=== PATIENT | female | born 1960 | race Caucasian/White ===

== ENCOUNTER 2021-03-04 09:26 | Outpatient (REF) | payer OTHER, SELFPAY ==
[2021-03-04 10:23] LABS: MANUAL DIFF FLAG NO
[2021-03-04 10:32] LABS: Basophils Percent Auto 0.8 % (0-2); Eosinophils Absolute Auto 0.2 X10*3/uL (0.0-0.4); Eosinophils Percent Auto 4.5 % (0-4); Hematocrit 38.4 % (37-47); Hemoglobin 12.5 g/dl (12.0-16.0); Imm Gran Abs Auto 0.03 X10*3/uL (0.00-0.03); Imm Gran Pct Auto 0.6 % (0.0-0.4); Lymphocytes Absolute Auto 2.1 X10*3/uL (1.2-4.9); Lymphocytes Percent Auto 39.2 % (20-40); Mean Corpuscular HGB Conc 32.6 g/dl (31.0-35.0); Mean Corpuscular Hemoglobin 29.2 pg (27.0-33.0); Mean Corpuscular Volume 89.7 fL (80-98); Mean Platelet Volume 11.2 fL (9.4-12.3); Monocytes Absolute Auto 0.3 X10*3/uL (0.1-1.2); Monocytes Percent Auto 5.3 % (2-11); Neutrophils Absolute Auto 2.6 X10*3/uL (2.0-8.3); Neutrophils Percent Auto 49.6 % (45-73); Platelet Count 287 X10*3/uL (160-400); Red Blood Count 4.28 X10*6/uL (4.20-5.50); Red Cell Distribution Width 12.8 % (11.0-16.0); White Blood Count 5.3 X10*3/uL (4.8-10.8)
[2021-03-04 11:15] LABS: TSH reflex Free T4 3.61 uIU/mL (0.32-4.0)
[2021-03-04 11:17] LABS: Alanine Aminotransferase 21 U/L (0-31); Albumin Level 4.4 g/dL (3.5-5.0); Alkaline Phosphatase 44 U/L (39-117); Anion Gap 13 (12-20); Aspartate Amino Transferase 22 U/L (5-31); Bilirubin Total 0.4 mg/dL (0.0-1.0); Blood Urea Nitrogen 13 mg/dL (9-16); Calcium 9.5 mg/dL (8.4-10.2); Carbon Dioxide 25 mmol/L (22-29); Chloride 109 mmol/L (96-108); Cholesterol 200 mg/dL; Estimated Glomerular Filt Rate > 60; Glucose Fasting 97 mg/dL (60-99); HDL Cholesterol 73 mg/dL; LDL Cholesterol Calculated 116 mg/dl; Potassium 4.5 mmol/L (3.3-5.1); Sodium 142 mmol/L (135-145); Triglycerides 58 mg/dL
[2021-03-09 16:01] LABS: Vitamin D 25-OH, D2 <4 ng/mL; Vitamin D 25-OH, D3 37 ng/mL; Vitamin D 25-OH, Total 37 ng/mL (30-100)
== END 2021-03-04 09:27 | disposition home or self-care (01) ==
LOC: HO.LAB 09:26
PROVIDERS: PCP Internal Medicine; Visit Provider Internal Medicine
DX: E03.9 Hypothyroidism, unspecified (principal); E78.5 Hyperlipidemia, unspecified; E78.1 Pure hyperglyceridemia; M81.0 Age-related osteoporosis without current pathological fracture; E55.9 Vitamin D deficiency, unspecified
CPT/HCPCS: 36415; 80053; 80061; 82306; 84443; 85025

== ENCOUNTER 2021-09-18 09:09 | Outpatient (REF) | payer OTHER, SELFPAY ==
[2021-09-18 10:14] LABS: Alanine Aminotransferase 20 U/L (0-31); Albumin Level 4.5 g/dL (3.5-5.0); Alkaline Phosphatase 42 U/L (39-117); Anion Gap 10 (12-20); Aspartate Amino Transferase 19 U/L (5-31); Bilirubin Total 0.5 mg/dL (0.0-1.0); Blood Urea Nitrogen 15 mg/dL (9-16); Calcium 10.1 mg/dL (8.4-10.2); Carbon Dioxide 29 mmol/L (22-29); Chloride 108 mmol/L (96-108); Cholesterol 205 mg/dL; Estimated Glomerular Filt Rate > 60; Glucose Fasting 99 mg/dL (60-99); HDL Cholesterol 74 mg/dL; LDL Cholesterol Calculated 120 mg/dl; Potassium 4.7 mmol/L (3.3-5.1); Sodium 142 mmol/L (135-145); Total Protein 7.1 g/dL (6.5-8.0); Triglycerides 56 mg/dL
[2021-09-18 10:38] LABS: Thyroid Stimulating Hormone 3.99 uIU/mL (0.32-4.0)
== END 2021-09-18 09:10 | disposition home or self-care (01) ==
LOC: HO.LAB 09:09
PROVIDERS: PCP Internal Medicine; Visit Provider Internal Medicine
DX: E78.1 Pure hyperglyceridemia (principal); E03.9 Hypothyroidism, unspecified; E78.5 Hyperlipidemia, unspecified
CPT/HCPCS: 36415; 80053; 80061; 84443

== ENCOUNTER 2021-10-18 10:48 | Outpatient (REF) | payer OTHER, SELFPAY ==
--- NOTE | ~2021-10-18 | MM_ITS ---
EXAMINATION: BONE DENSITOMETRY CLINICAL INDICATION: Osteoporosis. COMPARISON: This is the patient's baseline examination. TECHNIQUE: Using a [employer] DXA System (software version: 13.1) manufactured by [employer], dual-energy x-ray absorptiometry was performed of the lumbar spine and left hip. The images are of good technical quality. Summary results are attached. FINDINGS: AP SPINE L1-L4: BMD 0.962 g/cm2, Z-score -0.1, T-score -1.8, osteopenia. LEFT FEMUR, NECK: BMD 0.704 g/cm2, Z-score -0.9, T-score -2.4, osteopenia. LEFT FEMUR, TOTAL: BMD 0.742 g/cm2, Z-score -0.8, T-score -2.1, osteopenia. IDENTIFIED RISK FACTORS: Menopause. HISTORY OF FRACTURE: None listed. MEDICATIONS: Calcium, bisphosphonate. MM/XR DEXA axial skeleton IMPRESSION: 1. DIAGNOSIS: Osteopenia based on the lowest T-score value of -2.4 in the femoral neck applying World Health Organization criteria. 2. 10-YEAR FRACTURE RISK PREDICTION, FRAX: Major osteoporotic fracture (clinical spine, forearm, hip or shoulder) 6.7%. Hip fracture 1.3%. 3. Treatment Recommendations: NOF guidelines recommend consideration for treatment in postmenopausal women and men age 50 and older presenting with the following: -A hip or vertebral (clinical or morphometric) fracture. -T-score less than or equal to -2.5 at the femoral neck or spine after appropriate evaluation to exclude secondary causes. -Low bone mass at the hip or spine and a 10-year fracture probability by FRAX of greater than or equal to 3% for hip fracture or greater than or equal to 20% for major osteoporotic fracture based on the [place] adapted WHO algorithm. 4. Other Recommendations: All treatment decisions require clinical judgment and consideration of individual patient factors, including patient preferences, comorbidities, previous drug use, risk factors not captured in the FRAX model (e.g. frailty, falls, vitamin D deficiency, increased bone turnover, interval significant decline in bone density) and possible under or overestimation of fracture risk by FRAX. Additional medical evaluation for secondary cause of low bone mineral density may be appropriate. FUTURE SCAN RECOMMENDATION: People with diagnosed cases of osteoporosis or at high risk for fracture should have regular bone mineral density tests. For patients eligible for Medicare, routine testing is allowed once every 2 years. The testing frequency can be increased to one year for patients who have rapidly progressing disease, those who are receiving or discontinuing medical therapy to restore bone mass, or have additional risk factors.
== END 2021-10-18 10:49 | disposition home or self-care (01) ==
LOC: HO.MAMMO 10:48
PROVIDERS: Visit Provider Internal Medicine
DX: Z13.820 Encounter for screening for osteoporosis (principal); M81.0 Age-related osteoporosis without current pathological fracture; M85.80 Other specified disorders of bone density and structure, unspecified site; Z78.0 Asymptomatic menopausal state; Z79.899 Other long term (current) drug therapy
CPT/HCPCS: 77080

== ENCOUNTER 2022-01-22 09:14 | Outpatient (REF) | payer OTHER, SELFPAY ==
[2022-01-22 10:49] LABS: Alanine Aminotransferase 77 U/L (0-31); Albumin Level 4.4 g/dL (3.5-5.0); Alkaline Phosphatase 64 U/L (39-117); Anion Gap 13 (12-20); Aspartate Amino Transferase 48 U/L (5-31); Bilirubin Total 0.5 mg/dL (0.0-1.0); Blood Urea Nitrogen 14 mg/dL (9-16); Calcium 10.3 mg/dL (8.4-10.2); Carbon Dioxide 26 mmol/L (22-29); Chloride 107 mmol/L (96-108); Cholesterol 212 mg/dL; Estimated Glomerular Filt Rate 58; Glucose Fasting 99 mg/dL (60-99); HDL Cholesterol 79 mg/dL; LDL Cholesterol Calculated 118 mg/dl; Potassium 4.3 mmol/L (3.3-5.1); Sodium 142 mmol/L (135-145); Total Protein 7.4 g/dL (6.5-8.0); Triglycerides 78 mg/dL
[2022-01-22 10:54] LABS: Thyroid Stimulating Hormone 4.92 uIU/mL (0.32-4.0)
[2022-01-26 13:56] LABS: Vitamin D 25-OH, D2 <4 ng/mL; Vitamin D 25-OH, D3 27 ng/mL; Vitamin D 25-OH, Total 27 ng/mL (30-100)
== END 2022-01-22 09:15 | disposition home or self-care (01) ==
LOC: HO.LAB 09:14
PROVIDERS: PCP Internal Medicine; Visit Provider Internal Medicine
DX: E78.5 Hyperlipidemia, unspecified (principal); E03.9 Hypothyroidism, unspecified; E55.9 Vitamin D deficiency, unspecified; K59.01 Slow transit constipation
CPT/HCPCS: 36415; 80053; 80061; 82306; 84443

== ENCOUNTER 2022-07-03 08:50 | Outpatient (REF) | payer OTHER, SELFPAY ==
[2022-07-03 10:39] LABS: Alanine Aminotransferase 13 U/L (0-31); Albumin Level 4.4 g/dL (3.5-5.0); Alkaline Phosphatase 52 U/L (39-117); Anion Gap 15 (12-20); Aspartate Amino Transferase 18 U/L (5-31); Bilirubin Direct 0.2 mg/dL (0.0-0.5); Bilirubin Total 0.4 mg/dL (0.0-1.0); Blood Urea Nitrogen 17 mg/dL (9-16); Calcium 9.8 mg/dL (8.4-10.2); Carbon Dioxide 25 mmol/L (22-29); Chloride 108 mmol/L (96-108); Estimated Glomerular Filt Rate > 60; Glucose Random 96 mg/dL (60-115); Potassium 4.1 mmol/L (3.3-5.1); Sodium 144 mmol/L (135-145)
[2022-07-04 15:16] LABS: PTHI 46 pg/mL (16-77)
[2022-07-05 21:16] LABS: Calcium, Random Urine 25.3 mg/dL
== END 2022-07-03 08:51 | disposition home or self-care (01) ==
LOC: HO.LAB 08:50
PROVIDERS: PCP Internal Medicine; Visit Provider Internal Medicine
DX: E03.9 Hypothyroidism, unspecified (principal); E83.52 Hypercalcemia; E78.1 Pure hyperglyceridemia
CPT/HCPCS: 36415; 80053; 82248; 82310; 83970; 84443

== ENCOUNTER 2022-11-14 08:01 | Outpatient (REF) | payer OTHER, SELFPAY ==
[2022-11-14 10:00] LABS: Alanine Aminotransferase 12 U/L (0-31); Albumin Level 4.2 g/dL (3.5-5.0); Alkaline Phosphatase 62 U/L (39-117); Anion Gap 15 (12-20); Aspartate Amino Transferase 18 U/L (5-31); Bilirubin Total 0.5 mg/dL (0.0-1.0); Blood Urea Nitrogen 17 mg/dL (9-16); Calcium 9.8 mg/dL (8.4-10.2); Carbon Dioxide 25 mmol/L (22-29); Chloride 109 mmol/L (96-108); Cholesterol 195 mg/dL; Estimated Glomerular Filt Rate > 60; Glucose Fasting 96 mg/dL (60-99); HDL Cholesterol 73 mg/dL; LDL Cholesterol Calculated 112 mg/dl; Potassium 4.6 mmol/L (3.3-5.1); Sodium 144 mmol/L (135-145); Thyroid Stimulating Hormone 1.71 uIU/mL (0.32-4.0); Total Protein 6.8 g/dL (6.5-8.0); Triglycerides 52 mg/dL
== END 2022-11-14 08:02 | disposition home or self-care (01) ==
LOC: HO.LAB 08:01
PROVIDERS: PCP Internal Medicine; Visit Provider Internal Medicine
DX: E03.9 Hypothyroidism, unspecified (principal); E78.2 Mixed hyperlipidemia
CPT/HCPCS: 36415; 80053; 80061; 84443

== ENCOUNTER 2023-01-14 13:18 | Outpatient (REF) | payer OTHER, SELFPAY ==
[2023-01-17 10:19] LABS: HPV mRNA E6/E7 rflx Not Detected (Not Detected)
== END 2023-01-14 13:19 | disposition home or self-care (01) ==
LOC: HO.LNP 13:18
PROVIDERS: PCP Internal Medicine; Visit Provider Advanced Practice Midwife
DX: Z01.419 Encounter for gynecological examination (general) (routine) without abnormal findings (principal); N89.8 Other specified noninflammatory disorders of vagina; N95.1 Menopausal and female climacteric states
CPT/HCPCS: 87624; 88142

== ENCOUNTER 2023-03-26 08:58 | Outpatient (REF) | payer OTHER, SELFPAY ==
[2023-03-26 10:02] LABS: Cholesterol 204 mg/dL; HDL Cholesterol 77 mg/dL; LDL Cholesterol Calculated 118 mg/dl; Triglycerides 49 mg/dL
[2023-03-26 10:21] LABS: Vitamin D 25-OH Total 39.4 ng/mL (>30)
== END 2023-03-26 08:59 | disposition home or self-care (01) ==
LOC: HO.LAB 08:58
PROVIDERS: PCP Internal Medicine; Visit Provider Internal Medicine
DX: E03.9 Hypothyroidism, unspecified (principal)
CPT/HCPCS: 36415; 80061; 82306; 84443

== ENCOUNTER 2023-04-01 11:07 | Outpatient (REF) | payer OTHER, SELFPAY ==
--- NOTE | ~2023-04-01 | XR_ITS ---
EXAMINATION: XR HIP, RIGHT CLINICAL INFORMATION: Pain in the right hip COMPARISON: None available. TECHNIQUE: Two views of the right hip. FINDINGS: Right hip joint space is normal. No arthrosis. No fracture or dislocation. Osteosclerosis and subchondral cystic change of the pubic symphysis, osteitis condensans. XR/XR hip RT min 2V IMPRESSION: 1. Normal right hip. 2. Osteitis pubis condensans.
--- NOTE | ~2023-04-01 | XR_ITS ---
EXAMINATION: XR LUMBOSACRAL SPINE CLINICAL INFORMATION: Low back pain. COMPARISON: None available. TECHNIQUE: Three views of the lumbosacral spine. FINDINGS: Lumbar vertebrae have normal height and alignment. No fracture bone destruction. Minor degenerative lipping at the anterior endplates of lumbar vertebrae. Lumbar disc heights are normal. Normal sacroiliac joints. Calcified gallstone right upper quadrant of abdomen partially visualized measuring 2.5 cm in diameter. XR/XR lumbar spine 2-3V IMPRESSION: 1. No acute abnormality. 2. Mild degenerative spondylosis of lumbar spine. 3. Cholelithiasis.
== END 2023-04-01 11:08 | disposition home or self-care (01) ==
LOC: HO.XRAY 11:07
PROVIDERS: PCP Internal Medicine; Visit Provider Internal Medicine
DX: M54.50 Low back pain, unspecified (principal); M25.551 Pain in right hip
CPT/HCPCS: 72100; 73502

== ENCOUNTER 2023-11-23 08:00 | Outpatient (REF) | payer OTHER, SELFPAY ==
[2023-11-23 09:36] LABS: Alanine Aminotransferase 20 U/L (0-31); Albumin Level 4.3 g/dL (3.5-5.0); Alkaline Phosphatase 58 U/L (39-117); Anion Gap 14 (12-20); Aspartate Amino Transferase 18 U/L (5-31); Bilirubin Total 0.4 mg/dL (0.0-1.0); Blood Urea Nitrogen 18 mg/dL (9-16); Calcium 9.8 mg/dL (8.4-10.2); Carbon Dioxide 30 mmol/L (22-29); Chloride 107 mmol/L (96-108); Cholesterol 204 mg/dL (<200); Estimated Glomerular Filt Rate 60; Glucose Fasting 97 mg/dL (60-99); HDL Cholesterol 76 mg/dL (>40); LDL Cholesterol Calculated 114 mg/dL (<100); Potassium 3.6 mmol/L (3.3-5.1); Sodium 147 mmol/L (135-145); Total Protein 7.4 g/dL (6.5-8.0); Triglycerides 72 mg/dL (<150)
== END 2023-11-23 08:01 | disposition home or self-care (01) ==
LOC: HO.LAB 08:00
PROVIDERS: PCP Internal Medicine; Visit Provider Internal Medicine
DX: E78.5 Hyperlipidemia, unspecified (principal); E78.2 Mixed hyperlipidemia; E55.9 Vitamin D deficiency, unspecified
CPT/HCPCS: 36415; 80053; 80061; 82306

== ENCOUNTER 2023-11-26 10:02 | Outpatient (AMB) | payer OTHER, SELFPAY ==
[2023-11-26 10:10] VITALS: BP 110/70; BMI 21.7
--- NOTE | 2023-11-26 10:10 | A.OFFPC_ITS ---
Vital Signs 11/26/23 10:10 Height 5 ft 1 in Weight 115 lb BMI 21.7 BP 110/70 Blood Pressure Location Lt brachial Position Sitting Intake Visit Reasons: Annual Exam Intake Note: Patient here for a physical exam Milk Bottler Required: No Accompanied by: Self / Same As Patient Allergies No Known Allergies Allergy (Verified 11/26/23 10:29) Medication List - Last Reconciled 11/26/23 by Norma West MD calcium carbonate-vitamin D3 1,000 mg-20 mcg (800 unit) 1 tab PO DAILY 90 days cetirizine (All Day Allergy (cetirizine)) 10 mg PO DAILY PRN 90 days docusate sodium 100 mg PO BID PRN 90 days duloxetine (Cymbalta) 30 mg PO BID 30 days fenofibrate nanocrystallized 48 mg PO DAILY 90 days levothyroxine 50 mcg PO DAILY 90 days trazodone mg PO Tobacco use date assessed: 11/26/23 Fall risk assessment: No Falls in past year Last assessed Fall Risk: 11/26/23 Dental Screening Dental Screen Date: 11/26/23 Did you have a dental visit in the last 12 months?: Yes Did you have a dental problem in the last 6 months where you did not have access to dental care?: No Was dental information given to patient?: Patient has dentist HPI HPI Comments History of Present Illness Details This is a 62-year-old female that comes for her physical exam. Last mammogram was 2022 and was normal. Last Pap smear was 2022. Last colonoscopy was 2016 at [facility] and he was normal as per patient. No chest pain or shortness of breath. Cholesterol elevated but does not require any statin. On fenofibrate for high triglycerides which has had it well control. Last bone density was 2020 and will be repeated. [facility] Medical History Osteopenia Mixed hyperlipidemia Hypercalcemia Skin lesion Fibromyalgia Hypothyroidism Constipation by delayed colonic transit Hypertriglyceridemia Insomnia Osteoporosis Surgical History Previous section History of appendectomy Family History Father Hypertension Mother No problems noted. Social History Household Members: Spouse and Family Housing: House Alcohol intake: current Alcohol intake frequency: holidays/special occasions only Alcohol type: beer and wine Patient Tobacco Use Status: Never used Tobacco e-Cigarette/Vaping Use: Never Used Second Hand Smoke Exposure: No service: No Current occupational status: retired Sexual orientation: Straight/Heterosexual Gender identity: Female Cognitive needs: No Hearing needs: No Vision needs: Yes Questionnaire PHQ-9 Over the last 2 weeks, how often have you been bothered by any of the following problems? 1. Little interest or pleasure in doing things: not at all 2. Feeling down, depressed, or hopeless: several days 3. Trouble falling or staying asleep, or sleeping too much: not at all 4. Feeling tired or having little energy: not at all 5. Poor appetite or overeating: not at all 6. Feeling bad about yourself - or that you are a failure or have let yourself or your family down: not at all 7. Trouble concentrating on things, such as reading the newspaper or watching television: not at all 8. Moving or speaking so slowly that other people could have noticed. Or the opposite - being so fidgety or restless that you have been moving around a lot more than usual: not at all 9. Thoughts that you would be better off or of hurting yourself in some way: not at all Total score: 1 Depression Screening Interpretation: Negative Depression Screening Done: Yes 53841 - PHQ-9 Billing: Yes Source: Developed by Drs. Scott Ashraf, Jaycee Camp, Ken Paige and colleagues, with an educational fe from [employer]. Thrive Questionnaire Date Thrive assessed: 11/26/23 I am a: Patient What is your living situation today?: I have a steady place to live Within the past 12 months, did the food you bought not last and you didn't have the money to get more?: Never true Within the past 12 months, did you worry whether your food would run out before you got money to buy more?: Never true Do you have trouble paying for medicines?: No Do you have trouble getting transportation to medical appointments?: No Do you have trouble paying your heating and electricity bill?: No Do you have trouble taking care of your child, family member or friend?: No Do you have trouble with day-to-day activities such as bathing, preparing meals, shopping, managing finances, etc.?: No Are you currently unemployed and looking for a job?: No Are you interested in more education?: No Please select the resources that you would like help with: None Currently or been in a relationship where the following occur: no concerns reported THRIVE Score: 0 AUDIT C Alcohol Use Questionnaire (AUDIT-C) 1. How often do you have a drink containing alcohol?: Monthly or less 2. How many drinks containing alcohol do you have on a typical day when you are drinking?: 1 or 2 3. How often do you have six or more drinks on one occasion?: Never Total Score: 1 Score Reviewed/Action Taken: No DARSHAN-7 AMB Questionnaire DARSHAN-7 Date DARSHAN - 7 assessed: 11/26/23 Feeling nervous, anxious, or on edge: 0 = Not at all Not being able to stop or control worryin = Not at all Worrying too much about different things: 0 = Not at all Trouble relaxin = Not at all Being so restless that it is hard to sit still: 0 = Not at all Becoming easily annoyed or irritable: 0 = Not at all Feeling afraid as if something awful might happen: 0 = Not at all Total DARSHAN-7 score (0-4 normal; 5-9 mild; 10-14 moderate; 15-21 severe): 0 Source: Developed by Drs. Scott Ashraf, Jaycee Camp, Ken Paige and colleagues, with an educational fe from [employer]. DARSHAN-7 Assessment Billing DARSHAN-7 Assessment Tool: DARSHAN-7 Assessment 56791 Review of Systems Const All systems reviewed & are unremarkable except as noted in HPI and below Eyes Reports no additional complaints, Denies change in vision and Denies other visual disturbances Card Denies chest pain at rest, Denies chest pain with activity, Denies edema, Denies irregular heart rhythm, Denies claudication, Denies dyspnea, Denies dyspnea on exertion, Denies orthopnea, Denies paroxysmal nocturnal dyspnea and Denies slow heart rate Resp Denies cough, Denies dyspnea and Denies dyspnea on exertion GI Denies abdominal pain, Denies change in bowel habits, Denies excessive flatus, Denies nausea and Denies vomiting Denies urinary incontinence, Denies urinary hesitancy and Denies urinary urgency Musc Denies abnormal gait, Denies atrophy, Denies deformity and Denies limited range of motion Skin/Breast Denies bleeding lesions, Denies changing lesions and Denies rash Neuro Denies abnormal gait, Denies behavioral changes, Denies confusion and Denies la ck of coordination Psych Denies behavioral changes and Denies confusion Physical exam (Primary Care) Vital Signs: Last Vital Signs BP 110/70 11/26/23 10:10 BMI result Body Mass Index 21.7 Tobacco/Smoking Status: Tobacco use Status Tobacco use date assessed 11/26/23 11/26/23 10:16 Patient Tobacco Use Status Never used Tobacco 11/26/23 10:10 e-Cigarette/Vaping Use Never Used 11/26/23 10:10 PHQ-9: PHQ-9 Score PHQ-9: Total score 1 11/26/23 10:36 Depression Screening Interpretation: Negative Thrive Assessment: Date of Thrive Assessment Date Thrive assessed 11/26/23 11/26/23 10:16 Currently or been in a relationship where the following occur: no concerns reported Const General: No confusion Orientation/consciousness: patient oriented x3 and No confusion HENMT Head: Yes normal to inspection, Yes normocephalic and Yes atraumatic Ears: external ears normal Eyes General: appearance normal, both eyes and all related structures Eyelids: Yes eyelids normal Conjunctivae: conjunctivae normal Neck Neck: Yes normal visual inspection and Yes supple Resp Effort & Inspection: normal respiratory effort Auscultation: clear to auscultation bilaterally Cardio Jugular venous distension: no JVD Rate: regular rate Rhythm: regular rhythm Heart sounds: S1 normal heart sound present and S2 normal heart sound present GI Inspection: Yes normal to inspection Palpation (GI): Soft to palpation and nontender Auscultation: normal bowel sounds Skin General skin exam: no rashes or lesions noted Neuro General: patient oriented x3, no focal motor deficits and No confusion Extrem General: Yes full ROM Psych Appearance: grossly normal Office Procedures Flu Questionnaire Does the patient have a severe egg allergy?: No Does the patient have severe life threatening allergies?: No Does the patient have a fever or illness today?: No Has the patient ever had Guillain-[place] Syndrome?: No Has the patient ever had any past reaction to a flu shot?: No Immunizations flu vacc [id number] 6mos up(PF) 60 mcg(15 mcgx4)/0.5 mL IM syringe Performing Provider: Norma West MD [facility] Administered by: SARA Farrell on 11/26/23 10:48 Dose Route Admin Location Dispensed Lot Number Expiration Date [employer] Screener 0.5 mL IM Left Deltoid 0.5 mL [id number] 05/01/24 51272-473-11 [employer] VIS Given Date VIS Provided VIS Publication Date 11/26/23 Single Vaccine 21 Eligibility Eligibility Date Funding Source Not [facility] Eligible 11/26/23 Private Assessment and Plan Assessment & Plan (1) Physical exam: Code(s): Z00.00 - Encounter for general adult medical examination without abnormal findings Plan: Repeat in a year. Orders: Orders XR DEXA axial skeleton Today N95.9 - Unspecified menopausal and perimenopausal disorder Thyroid Stimulating Hormone 6 Months E03.9 - Hypothyroidism, unspecified Influenza [id number] Immunization Today Z23 - Encounter for immunization Coding Level of Care Code Est Pt Prev Care 40-64y(44845) Diagnoses Physical exam Z00.00 Additional Codes DARSHAN-7 Assessment Billing - DARSHAN-7 Assessment Tool: DARSHAN-7 Assessment 64802 ([id number]) Time Spent (min) 31
== END 2023-11-26 10:47 | disposition home or self-care (01) ==
PROVIDERS: Visit Provider Internal Medicine
DX: Z23 Encounter for immunization (principal); Z00.00 Encounter for general adult medical examination without abnormal findings; E03.9 Hypothyroidism, unspecified
CPT/HCPCS: 90471; 90686; 99396

== ENCOUNTER 2023-12-29 09:48 | Outpatient (REF) | payer MEDICARE, MEDICAID, SELFPAY ==
--- NOTE | ~2023-12-29 | MM_ITS ---
EXAMINATION: BONE DENSITOMETRY CLINICAL INDICATION: Unspecified menopausal and perimenopausal disorder. COMPARISON: Baseline BD dated 10/18/2021. TECHNIQUE: Using a [employer] DXA System (software version: 13.1) manufactured by [employer], dual-energy x-ray absorptiometry was performed of the lumbar spine and left hip. The images are of good technical quality. Summary results are attached. FINDINGS: LEFT FEMUR, NECK: Current: BMD 0.747 g/cm2, Z-score -0.4, T-score -2.1, osteopenia. Baseline: BMD 0.704 g/cm2. LEFT FEMUR, TOTAL: Current: BMD 0.770 g/cm2, Z-score -0.4, T-score -1.9, osteopenia, 3.8% increase from baseline (<5% change is not significant). Baseline: BMD 0.742 g/cm2. AP SPINE L1-L4: Current: BMD 0.921 g/cm2, Z-score -0.1, T-score -2.2, osteopenia, 4.3% decrease from baseline (<5% change is not significant). Baseline: BMD 0.962 g/cm2. IDENTIFIED RISK FACTORS: Menopause, secondary osteoporosis (hyperthyroidism). HISTORY OF FRACTURE: None listed. MEDICATIONS: Calcium supplements or multivitamin, vitamin D. MM/XR DEXA axial skeleton IMPRESSION: 1. DIAGNOSIS: Osteopenia based on the lowest T-score value of -2.2 in the lumbar spine applying World Health Organization criteria. 2. 10-YEAR FRACTURE RISK PREDICTION, FRAX: Major osteoporotic fracture (clinical spine, forearm, hip or shoulder) 5.9%. Hip fracture 1.0%. 3. Treatment Recommendations: NOF guidelines recommend consideration for treatment in postmenopausal women and men age 50 and older presenting with the following: -A hip or vertebral (clinical or morphometric) fracture. -T-score less than or equal to -2.5 at the femoral neck or spine after appropriate evaluation to exclude secondary causes. -Low bone mass at the hip or spine and a 10-year fracture probability by FRAX of greater than or equal to 3% for hip fracture or greater than or equal to 20% for major osteoporotic fracture based on the [place] adapted WHO algorithm. 4. Other Recommendations: All treatment decisions require clinical judgment and consideration of individual patient factors, including patient preferences, comorbidities, previous drug use, risk factors not captured in the FRAX model (e.g. frailty, falls, vitamin D deficiency, increased bone turnover, interval significant decline in bone density) and possible under or overestimation of fracture risk by FRAX. Additional medical evaluation for secondary cause of low bone mineral density may be appropriate. FUTURE SCAN RECOMMENDATION: People with diagnosed cases of osteoporosis or at high risk for fracture should have regular bone mineral density tests. For patients eligible for Medicare, routine testing is allowed once every 2 years. The testing frequency can be increased to one year for patients who have rapidly progressing disease, those who are receiving or discontinuing medical therapy to restore bone mass, or have additional risk factors.
== END 2023-12-29 09:49 | disposition home or self-care (01) ==
LOC: HO.MAMMO 09:48
PROVIDERS: PCP Internal Medicine; Visit Provider Internal Medicine
DX: Z13.820 Encounter for screening for osteoporosis (principal); N95.9 Unspecified menopausal and perimenopausal disorder
CPT/HCPCS: 77080

== ENCOUNTER 2024-01-19 13:27 | Outpatient (AMB) | payer OTHER, SELFPAY ==
--- NOTE | 2024-01-19 13:32 | MHC.OFFVIS ---
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 She is doing well with no concerns. Attempting to eat a healthy diet with calcium and vitamin D and stays active with exercise. Currently sexually active. Denies any irritation. Having some dryness, used Replens in the past. STI testing offered; she declines. Last pap smear; 2022. Last mammogram; 2022. Colonoscopy is UTD. Denies any family history of breast, ovarian or colon cancer. [facility] Medical History Osteopenia Mixed hyperlipidemia Hypercalcemia Skin lesion Fibromyalgia Hypothyroidism Constipation by delayed colonic transit Hypertriglyceridemia Insomnia Osteoporosis Surgical History Previous section History of appendectomy Family History Father Hypertension Mother No problems noted. Social History Household Members: Spouse and Family Housing: House Alcohol intake: current Alcohol intake frequency: holidays/special occasions only Alcohol type: beer and wine Patient Tobacco Use Status: Never used Tobacco e-Cigarette/Vaping Use: Never Used Second Hand Smoke Exposure: No service: No Current occupational status: retired Sexual orientation: Straight/Heterosexual Gender identity: Female Cognitive needs: No Hearing needs: No Vision needs: Yes Female Reproductive History Menstrual Total pregnancies: 3 Full term: 3 Number of Living Children: 3 Date of last pap smear: 01/14/23 (neg pap and hpv) Date of Mammogram: 03/12/23 (Birad 2) Date of last Bone Density Screenin12/29/23 Review of Systems Const All systems reviewed & are unremarkable except as noted in HPI and below Reports as per HPI Eyes Reports no additional complaints ENT Reports no additional complaints Card Reports no additional complaints Resp Reports no additional complaints GI Reports as per HPI and Reports no additional complaints Reports as per HPI Musc Reports no additional complaints Skin/Breast Reports as per HPI Neuro Reports no additional complaints Psych Reports no additional complaints Endo Reports no additional complaints Corona/Lymph Reports no additional complaints Aller/Immun Reports no additional complaints Physical Exam Vital Signs: Last Vital Signs BP 110/70 01/19/24 13:33 BMI result Body Mass Index 21.9 Const General: cooperative, healthy appearing, no acute distress, well developed and alert Orientation/consciousness: patient oriented x3 HEENT Head: Yes normal to inspection Eyes General: appearance normal, both eyes and all related structures Neck Neck: Yes normal visual inspection Thyroid: Thyroid normal Chest Chest palpation & inspection: normal inspection of the chest and other (no puckering, dimpling, peau de orange, retraction, discharge, masses) Breast/axilla inspection: normal inspection of the breasts Breast/axilla palpation: normal palpation of the breasts Resp Effort & Inspection: normal respiratory effort GI Inspection: Yes normal to inspection Palpation (GI): Soft to palpation Rectal Exam - Female: deferred General: Yes bladder normal to palpation External Female Exam: normal external appearance and normal appearance of the urethra Speculum Exam - Vagina: normal appearance of the vagina, normal palpation, normal vaginal discharge and vagina atrophic Speculum Exam - Cervix: normal appearance of the cervix and normal palpation Bimanual exam- vagina & uterus: normal bimanual exam, normal palpation, uterine size normal, bladder normal to palpation, normal palpation and non-tender Bimanual Exam- Adnexa, other: no masses Skin General skin exam: no rashes or lesions noted Rashes: no rashes Neuro General: patient oriented x3 Cognition (Neuro): normal cognition Extrem General: Yes normal to inspection Psych Attitude: cooperative Thought process: Normal thought process present Assessment & Plan Assessment & Plan (1) Encounter for well woman exam with routine gynecological exam: Code(s): Z01.419 - Encounter for gynecological examination (general) (routine) without abnormal findings Plan Discussed: Current recommendations for pap smears per ASCCP guidelines. Breast awareness, periodic self breast exams and yearly mammogram. Maintain a healthy lifestyle, well balanced diet including Calcium 1,200 mg and Vitamin D 600 IU daily, and routine exercise. Contact the office with any postmenopausal bleeding. Patient verbalizes understanding and agrees to the plan of care. She was given opportunity to ask questions and all questions were answered to the best of my ability. RTO in 1 year for annual orthodontic lab technician exam. This note is constructed using voice recognition software. While every effort has been made to ensure accuracy, patrol officer errors may have been included. Coding Level of Care Code Est Pt Prev Care >65y(51709) Diagnoses Encounter for well woman exam with routine gynecological exam Z01.419
[2024-01-19 13:33] VITALS: BP 110/70; BMI 21.9
== END 2024-01-19 14:15 | disposition home or self-care (01) ==
PROVIDERS: Visit Provider Advanced Practice Midwife
DX: Z01.419 Encounter for gynecological examination (general) (routine) without abnormal findings (principal)
CPT/HCPCS: 99397

== ENCOUNTER → 2024-01-19 13:27 | Outpatient (BNVA) | payer OTHER, SELFPAY | PROVIDERS: Visit Provider Advanced Practice Midwife ==

== ENCOUNTER 2024-03-28 09:29 | Emergency (ER) | payer OTHER, SELFPAY ==
[2024-03-28 10:05] VITALS: BP 136/67; PULSE 64; RESP 16; TEMP 36.3; O2SAT 99; BMI 21.7
[2024-03-28 10:55] LABS: IDNOW Serial# 6674DD1D; Strep A Nucleic Acid Negative (Negative)
[2024-03-28 11:03] LABS: Influenza A PCR NEGATIVE (Negative); Influenza B PCR NEGATIVE (Negative); Resp Syncy Virus RNA Qual PCR NEGATIVE (Negative); SARS COV2 PCR INHOUSE NEGATIVE (Negative)
--- NOTE | 2024-03-28 12:46 | ED_ITS ---
HPI - URI/Sore Throat General Chief Complaint: Upper Respiratory Symptoms Stated Complaint: Sore throat/Headache/Congestion Time Seen by Provider: 03/28/24 11:36 Source: patient, RN notes reviewed and old records reviewed Mode of arrival: ambulatory History of Present Illness ED Provider: RAMON Tafoya HPI Narrative: 63-year-old female with a past medical history of HLD, fibromyalgia, hypothyroid, presenting to the ED complaining of sore throat, nasal congestion, headache, mild dry cough x3 days. with similar symptoms. Denies SOB, CP, drainage from ear, hearing loss, difficulty or inability to swallow, travel Related Data Home Medications ?Medication ?Instructions ?Recorded ?Confirmed trazodone 50 mg tablet mg PO 11/13/20 11/26/23 Previous Rx's ?Medication ?Instructions ?Recorded fenofibrate nanocrystallized 48 mg 48 mg PO DAILY 90 days #90 tabs 07/12/23 tablet cetirizine 10 mg tablet (All Day 10 mg PO DAILY PRN allergy 10/27/23 Allergy (cetirizine)) symptoms 90 days #90 tabs levothyroxine 50 mcg tablet 50 mcg PO DAILY 90 days #90 tabs 12/17/23 calcium carbonate 1,000 mg-vitamin 1 tab PO DAILY 90 days #90 tabs 12/30/23 D3 20 mcg (800 unit) tablet docusate sodium 100 mg capsule 100 mg PO BID PRN constipation 90 02/23/24 days #180 caps duloxetine 30 mg capsule,delayed 30 mg PO BID 30 days #60 caps 02/23/24 release (Cymbalta) benzonatate 100 mg capsule 100 mg PO TID PRN cough #14 caps 03/28/24 fluticasone propionate 50 2 spray intranasal DAILY #16 grams 03/28/24 mcg/actuation nasal spray,suspension (Flonase Allergy Relief) Allergies Allergy/AdvReac Type Severity Reaction Status Date / Time No Known Allergies Allergy Verified 03/28/24 10:06 Review of Systems Review of Systems: Constitutional: No Fever, No Chills ENT/Mouth: No Ear Pain, + Nasal Congestion, + Sinus Pain, No Hoarseness, +sore throat, + Rhinorrhea, No Swallowing Difficulty Cardiovascular: No Chest Pain, No SOB Respiratory: + Cough, No Sputum, No Wheezing Gastrointestinal: No Nausea, No Vomiting, No Abdominal pain Musculoskeletal: No joint pain, No Myalgias, No Joint Swelling Skin: No Skin Lesions, No rash Neuro: No Weakness Yes all other systems are reviewed and are negative Constitutional: Constitutional: Reports as per [facility] Past Medical History Attestation statement: The following information was validated with the patient. Source: old records reviewed Medical History Osteopenia Mixed hyperlipidemia Hypercalcemia Skin lesion Fibromyalgia Hypothyroidism Constipation by delayed colonic transit Hypertriglyceridemia Insomnia Osteoporosis Surgical History Previous section History of appendectomy Family History Family History Father Hypertension Mother No problems noted. Social History Social History Household Members: Spouse and Family Housing: House Alcohol intake: current Alcohol intake frequency: holidays/special occasions only Alcohol type: beer and wine Patient Tobacco Use Status: Never used Tobacco e-Cigarette/Vaping Use: Never Used Second Hand Smoke Exposure: No Advance Directives: No Advance Directives Information Provided: Yes service: No Current occupational status: retired Sexual orientation: Straight/Heterosexual Gender identity: Female Cognitive needs: No Hearing needs: No Vision needs: Yes Physical Exam Vital Signs: Vital Signs: Last Vital Signs Temp 97.4 F 03/28/24 14:23 Pulse 64 03/28/24 14:23 Resp 16 03/28/24 14:23 BP 136/67 03/28/24 14:23 Pulse Ox 99 03/28/24 14:23 O2 Del Method Room Air 03/28/24 14:23 BMI result Body Mass Index 21.7 Const: General: cooperative, healthy appearing and no acute distress Orientation/consciousness: patient oriented x3 Limitations: no limitations HEENT: Head: Yes normal to inspection and Yes atraumatic Ears: hearing grossly normal bilaterally, external ears normal, TM's normal bilaterally and mastoids normal General nose exam: Normal external nose present Face and s inus: Yes normal facial exam Mouth: Normal oral and palatal mucosa present and no drooling Throat: Yes tonsils normal, Yes uvula midline, No peritonsillar mass and Yes posterior oropharynx abnormal (Mild erythema) Eyes: General: appearance normal, both eyes and all related structures EOM: EOMs intact bilaterally Neck: Neck: Yes normal visual inspection and Yes no meningeal signs Resp: Effort & Inspection: normal respiratory effort and no respiratory distress Auscultation: clear to auscultation bilaterally, no crackles, no rhonchi and no wheezes Cardio: Rate: regular rate Heart sounds: S1 normal heart sound present and S2 normal heart sound present Skin: Rashes: no rashes Wounds: no wounds Neuro: General: patient oriented x3, tone normal and no meningeal signs Cranial nerves: Yes CN's II-XII intact bilaterally Gait exam (Neuro): Normal gait present Extrem: General: Yes normal to inspection Course Course Course Narrative: 1248--COVID/flu and RSV negative. Rapid strep negative Results discussed with patient including worrisome signs and symptoms and strict return precautions, and when to return to the emergency department. They verbalized understanding and feel safe for discharge at this time. Medical Decision Making Medical Decision Making MDM Narrative: 63-year-old female with a past medical history of HLD, fibromyalgia, hypothyroid, presenting to the ED complaining of sore throat, nasal congestion, headache, mild dry cough x3 days. On exam vital signs stable, NAD, nontoxic appearing, physical exam as noted above. Concern for viral illness vs strep pharyngitis vs sinusitis. 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 Unlikely ACS/PE Plan: Viral testing, rapid strep Please refer to course for remaining clinical decision making, interpretation of labs/imaging results, and discussions with consultants and/or family members. Differential Diagnosis Differential Diagnoses: The differential diagnosis associated with the presentation includes As above Lab Data [facility] Lab Attestation statement: I reviewed the patient's lab results. Labs: Lab Results 03/28/24 Range/Units 09:56 Influenza Type A (PCR) NEGATIVE (Negative) Influenza Type B (PCR) NEGATIVE (Negative) RSV RNA Qual (PCR) NEGATIVE (Negative) SARS-CoV-2 RNA (RT-PCR) NEGATIVE (Negative) S. pyogenes GrpA [place] Negative (Negative) Radiology Impression Discussion of test interpretation with radiology: I have reviewed the radiologist's reading. Independent Historian Clinical information obtained from an independent historian. History obtained from or confirmed by: Spouse External Record Review External record reviewed: Inpatient record, Office record, Outpatient record, Prior outpatient labs, Prior outpatient radiology, Primary care record and Outside ED record Tests considered The following testing was considered but not selected: As above Discharge Plan Discharge Clinical Impression: Upper respiratory infection Patient Disposition: Home, Self-Care Instructions: Upper Respiratory Infection (DC) Additional Instructions: You tested negative for COVID, flu, RSV and strep throat Tessalon Perles for cough take as needed Flonase as a nasal decongestant You have a virus No antibiotics are indicated at this time Make sure you are staying hydrated. Drink plenty of fluids. Rest Alternate Tylenol and Motrin at home as needed for body aches and fever Follow-up with your doctor. If symptoms persist or worsen return to the emergency department *If you are a child & not tolerating liquid or urinating for more than 6 hours, or fevers are uncontrolled with medications at home, return to the emergency department* Prescriptions: New benzonatate 100 mg capsule 100 mg PO TID PRN (Reason: cough) Qty: 14 0RF fluticasone propionate [Flonase Allergy Relief] 50 mcg/actuation spray,suspension 2 spray intranasal DAILY Qty: 16 0RF Rx Instructions: administer into each nostril No Action fenofibrate nanocrystallized 48 mg tablet 48 mg PO DAILY 90 Days Qty: 90 3RF cetirizine [All Day Allergy (cetirizine)] 10 mg tablet 10 mg PO DAILY PRN (Reason: allergy symptoms) 90 Days Qty: 90 1RF levothyroxine 50 mcg tablet 50 mcg PO DAILY 90 Days Qty: 90 1RF calcium carbonate-vitamin D3 1,000 mg-20 mcg (800 unit) tablet 1 tab PO DAILY 90 Days Qty: 90 3RF duloxetine [Cymbalta] 30 mg capsule,delayed release(DR/EC) 30 mg PO BID 30 Days Qty: 60 1RF docusate sodium 100 mg capsule 100 mg PO BID PRN (Reason: constipation) 90 Days Qty: 180 2RF trazodone 50 mg tablet PO Referrals: Norma Chairez MD [Primary Care Provider] - Interventions: ED Discharge Assessment Last Done: 03/28/24 14:23 Discharge Date/Time: 03/28/24 14:24 Print Language: Serbian
[2024-03-28 14:23] VITALS: BP 136/67; PULSE 64; RESP 16; TEMP 36.3; O2SAT 99
== END 2024-03-28 14:24 | disposition home or self-care (01) ==
PROVIDERS: Emergency Provider Student in an Organized Health Care Education/Training Program; PCP Internal Medicine
DX: J06.9 Acute upper respiratory infection, unspecified (principal)
CPT/HCPCS: 0241U; 87651; 99282; 99283

== ENCOUNTER 2024-04-18 08:03 | Outpatient (REF) | payer OTHER, SELFPAY ==
[2024-04-18 09:10] LABS: Thyroid Stimulating Hormone 2.02 uIU/mL (0.32-4.0)
== END 2024-04-18 08:04 | disposition home or self-care (01) ==
LOC: HO.LAB 08:03
PROVIDERS: PCP Internal Medicine; Visit Provider Internal Medicine
DX: E03.9 Hypothyroidism, unspecified (principal)
CPT/HCPCS: 36415; 84443

== ENCOUNTER 2024-04-25 10:40 | Outpatient (AMB) | payer OTHER, SELFPAY ==
[2024-04-25 10:42] VITALS: BP 112/68; BMI 21.7
--- NOTE | 2024-04-25 10:42 | MHC.PC.OV ---
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 Accompanied by: Self / Same As Patient Allergies No Known Allergies Allergy (Verified 04/25/24 10:51) Medication List - Last Reconciled 04/25/24 by Norma West MD calcium carbonate-vitamin D3 1,000 mg-20 mcg (800 unit) 1 tab PO DAILY 90 days cetirizine (All Day Allergy (cetirizine)) 10 mg PO DAILY PRN 90 days docusate sodium 100 mg PO BID PRN 90 days duloxetine (Cymbalta) 30 mg PO BID 30 days fenofibrate nanocrystallized 48 mg PO DAILY 90 days fluticasone propionate 50 mcg/actuation (Flonase Allergy Relief) 2 sprays intranasal DAILY levothyroxine 50 mcg PO DAILY 90 days trazodone mg PO Tobacco use date assessed: 11/26/23 Fall risk assessment: No Falls in past year Last assessed Fall Risk: 04/25/24 Dental Screening Dental Screen Date: 11/26/23 HPI HPI Comments History of Present Illness Details This is a 63-year-old female with hypothyroidism, hypertriglyceridemia, fibromyalgia, osteopenia constipation that comes today for follow-up on her conditions. TSH was normal. On fenofibrate for elevated triglycerides and was advised to follow a low triglyceride diet. On duloxetine for fibromyalgia. Still has diffuse joint pain more prominent in the right hip and left knee. Last bone density shows osteopenia and is on calcium with vitamin-D. On docusate as needed for constipation and was recommended to follow a high-fiber diet. No chest pain or shortness on breath. [facility] Medical History (Updated 04/25/24 @ 11:03 by Norma West MD) Osteopenia Mixed hyperlipidemia Hypercalcemia Skin lesion Fibromyalgia Hypothyroidism Constipation by delayed colonic transit Hypertriglyceridemia Insomnia Osteoporosis Surgical History Previous section History of appendectomy Family History Father Hypertension Mother No problems noted. Social History Household Members: Spouse and Family Housing: House Alcohol intake: current Alcohol intake frequency: holidays/special occasions only Alcohol type: beer and wine Patient Tobacco Use Status: Never used Tobacco e-Cigarette/Vaping Use: Never Used Second Hand Smoke Exposure: No service: No Current occupational status: retired Sexual orientation: Straight/Heterosexual Gender identity: Female Cognitive needs: No Hearing needs: No Vision needs: Yes Questionnaire Thrive Questionnaire Date Thrive assessed: 11/26/23 DARSHAN-7 AMB Questionnaire DARSHAN-7 Date DARSHAN - 7 assessed: 11/26/23 Source: Developed by Drs. Scott Ashraf, Jaycee Capm, Ken Paige and colleagues, with an educational fe from [employer]. Review of Systems Const All systems reviewed & are unremarkable except as noted in HPI and below Card Denies chest pain at rest, Denies chest pain with activity, Denies edema, Denies irregular heart rhythm, Denies claudication, Denies dyspnea, Denies dyspnea on exertion, Denies orthopnea, Denies paroxysmal nocturnal dyspnea and Denies slow heart rate Resp Denies cough, Denies dyspnea and Denies dyspnea on exertion Musc Reports back pain, Denies atrophy, Denies deformity, Reports arthralgias and Denies limited range of motion Physical exam (Primary Care) Vital Signs: Last Vital Signs BP 112/68 04/25/24 10:42 BMI result Body Mass Index 21.7 Tobacco/Smoking Status: Tobacco use Status Tobacco use date assessed 11/26/23 04/25/24 10:48 Patient Tobacco Use Status Never used Tobacco 04/25/24 10:48 e-Cigarette/Vaping Use Never Used 04/25/24 10:48 Thrive Assessment: Date of Thrive Assessment Date Thrive assessed 11/26/23 04/25/24 10:48 Resp Effort & Inspection: normal respiratory effort Auscultation: clear to auscultation bilaterally Cardio Jugular venous distension: no JVD Rate: regular rate Rhythm: regular rhythm Heart sounds: S1 normal heart sound present and S2 normal heart sound present Extrem General: Yes full ROM Assessment and Plan Assessment & Plan (1) Hypertriglyceridemia: Code(s): E78.1 - Pure hyperglyceridemia Plan: Continue fenofibrate. Advised a low triglyceride diet. (2) Osteopenia: Code(s): M85.80 - Other specified disorders of bone density and structure, unspecified site Qualifiers: Osteopenia location: unspecified Qualified Code(s): M85.80 - Other specified disorders of bone density and structure, unspecified site Plan: Continue calcium with vitamin-D. Next DEXA scan will be in 2025. (3) Fibromyalgia: Code(s): M79.7 - Fibromyalgia Plan: Continue duloxetine. (4) Hypothyroidism: Code(s): E03.9 - Hypothyroidism, unspecified Qualifiers: Hypothyroidism type: unspecified Qualified Code(s): E03.9 - Hypothyroidism, unspecified Plan: Continue levothyroxine. (5) Constipation by delayed colonic transit: Code(s): K59.01 - Slow transit constipation Plan: Continue docusate as needed. Follow a high-fiber diet. Orders: Orders XR hip RT min 2V Today M25.551 - Pain in right hip XR knee LT 2V Today M25.562 - Pain in left knee Comprehensive [place]. Panel Fast 7 Months E78.2 - Mixed hyperlipidemia Thyroid Stimulating Hormone 7 Months E03.9 - Hypothyroidism, unspecified Lipid Panel 7 Months E78.5 - Hyperlipidemia, unspecified Vitamin D 25-OH Total 7 Months E55.9 - Vitamin D deficiency, unspecified Coding Level of Care Code Est Pt Level 4 (69760) Complex EM visit Add On G2211 Diagnoses Hypertriglyceridemia E78.1 Osteopenia, unspecified location M85.80 Osteopenia location: unspecified Fibromyalgia M79.7 Hypothyroidism, unspecified type E03.9 Hypothyroidism type: unspecified Constipation by delayed colonic transit K59.01 Time Spent (min) 23
== END 2024-04-25 11:01 | disposition home or self-care (01) ==
PROVIDERS: PCP Internal Medicine; Visit Provider Internal Medicine
DX: E78.1 Pure hyperglyceridemia (principal); M85.80 Other specified disorders of bone density and structure, unspecified site; M79.7 Fibromyalgia; E03.9 Hypothyroidism, unspecified; K59.01 Slow transit constipation
CPT/HCPCS: 99214; G2211

== ENCOUNTER 2024-04-27 08:51 | Outpatient (REF) | payer OTHER, SELFPAY ==
--- NOTE | ~2024-04-27 | XR_ITS ---
EXAMINATION: XR RIGHT HIP XR LEFT KNEE CLINICAL INFORMATION: Right hip, right knee pain. COMPARISON: Right hip 04/01/2023. TECHNIQUE: 2 views left knee. 2 views right hip. FINDINGS: RIGHT HIP: Mild degenerative changes with narrowing and hypertrophic change in the right hip. Alignment maintained. Degenerative changes on limited views of the inferior aspect of the right sacroiliac joint. LEFT KNEE: Trace joint effusion. Mild narrowing of the medial compartment. Mild degenerative changes in the patellofemoral joint. XR/XR knee LT 2V IMPRESSION: 1. Mild degenerative changes in the right hip. 2. Mild degenerative changes in the left knee.
--- NOTE | ~2024-04-27 | XR_ITS ---
EXAMINATION: XR RIGHT HIP XR LEFT KNEE CLINICAL INFORMATION: Right hip, right knee pain. COMPARISON: Right hip 04/01/2023. TECHNIQUE: 2 views left knee. 2 views right hip. FINDINGS: RIGHT HIP: Mild degenerative changes with narrowing and hypertrophic change in the right hip. Alignment maintained. Degenerative changes on limited views of the inferior aspect of the right sacroiliac joint. LEFT KNEE: Trace joint effusion. Mild narrowing of the medial compartment. Mild degenerative changes in the patellofemoral joint. XR/XR hip RT min 2V IMPRESSION: 1. Mild degenerative changes in the right hip. 2. Mild degenerative changes in the left knee.
[2024-04-29 23:43] LABS: TS Negative Control Passed; TS Panel A 0; TS Panel B 0; TS Positive Control Passed; TSpotTB Negative (Negative)
== END 2024-04-27 08:52 | disposition home or self-care (01) ==
LOC: HO.XRAY 08:51
PROVIDERS: PCP Internal Medicine; Visit Provider Internal Medicine
DX: Z11.1 Encounter for screening for respiratory tuberculosis (principal); M25.551 Pain in right hip; M25.562 Pain in left knee
CPT/HCPCS: 36415; 73502; 73560; 86481

== ENCOUNTER 2024-11-28 09:01 | Outpatient (REF) | payer OTHER, SELFPAY ==
[2024-11-28 10:18] LABS: Alanine Aminotransferase 17 U/L (0-31); Albumin Level 4.1 g/dL (3.5-5.0); Alkaline Phosphatase 54 U/L (39-117); Anion Gap 8 (12-20); Aspartate Amino Transferase 21 U/L (5-31); Bilirubin Total 0.5 mg/dL (0.0-1.0); Blood Urea Nitrogen 20 mg/dL (9-16); Calcium 9.2 mg/dL (8.4-10.2); Carbon Dioxide 28 mmol/L (22-29); Chloride 110 mmol/L (96-108); Cholesterol 209 mg/dL (<200); Estimated Glomerular Filt Rate > 60; Glucose Fasting 97 mg/dL (60-99); HDL Cholesterol 74 mg/dL (>40); LDL Cholesterol Calculated 124 mg/dL (<100); Sodium 142 mmol/L (135-145); Total Protein 7.1 g/dL (6.5-8.0); Triglycerides 56 mg/dL (<150)
[2024-11-28 10:35] LABS: Thyroid Stimulating Hormone 1.58 uIU/mL (0.32-4.0); Vitamin D 25-OH Total 39.4 ng/mL (>30)
--- OUTSIDE RECORDS SUMMARY | 2024-11-28 13:22 | XMS_ITS | Data Portability ---
Author Organization [facility] PA[facility] Address [address] [address] Care Team Providers Care Peoplesoft Analyst Name Role Phone ROMERO SAMANTHA Referring Provider Assessment Encounter Date Assessment Date Assessment LastModified by Organization Details LastModified Time 02/10/2017 02/10/2017 Domonique Hudson is a 56 year old woman with complaints of neck pain radiating into left upper extremity. She reports some pain benefit with last trigger point injection for a few days. On exam, she has trigger points in left trapezius muscle. Spurling's sign is positive on the left. She has trialed physical therapy with some pain benefit. She is doing a home exercise program. MRI Cervical Spine shows mild disc herniation and degenerative changes at C4-5 causing no significant impression upon the cord or nerve roots. Mild disc herniation and degenerative changes at C5-6 level causing mild flattening of the dural sac and mild to moderate left sided foraminal stenosis. Minimal disc bulge at C3-4 level. She is here for a repeat trigger point injections in her left trapezius muscle under ultrasound guidance. The risks and benefits of the procedure were discussed in detail. She wishes to proceed. I recommend a trial of cervical epidural steroid injection under fluoroscopic guidance. The risks and benefits of the procedure were discussed in detail. She wishes to proceed. An appointment has been made and she needs a concrete mixer truck driver on the day of the procedure. [email or web address] Not available 02/10/2017 11:13:56 02/24/2017 02/24/2017 Domonique Hudson is a 56 year old woman with complaints of neck pain radiating into left upper extremity. On exam, she has trigger points in left trapezius muscle. Spurling's sign is positive on the left. She has trialed physical therapy with some pain benefit. She is doing a home exercise program. MRI Cervical Spine shows mild disc herniation and degenerative changes at C4-5 causing no significant impression upon the cord or nerve roots. Mild disc herniation and degenerative changes at C5-6 level causing mild flattening of the dural sac and mild to moderate left sided foraminal stenosis. Minimal disc bulge at C3-4 level. She is here for a a trial of cervical epidural steroid injection under fluoroscopic guidance. The risks and benefits of the procedure were discussed in detail. She wishes to proceed. She needs to follow up in four weeks. [email or web address] Not available 02/26/2017 11:07:12 03/26/2017 03/26/2017 Domonique Hudson is a 56 year old woman with complaints of neck pain radiating into left upper extremity. MRI Cervical Spine shows mild disc herniation and degenerative changes at C4-5 causing no significant impression upon the cord or nerve roots. Mild disc herniation and degenerative changes at C5-6 level causing mild flattening of the dural sac and mild to moderate left sided foraminal stenosis. Minimal disc bulge at C3-4 level. She is here for a follow up after a trial of cervical epidural steroid injection under fluoroscopic guidance. She reports 90% pain benefit which is ongoing. She states she has minimal pain in her upper extremities. Her activity level is up . She can follow up as needed. [email or web address] Not available 04/08/2017 14:44:19 02/26/2018 02/26/2018 Domonique Hudson is a 57 year old woman with complaints of neck pain radiating into both upper extremities. On exam, she has trigger points in bilateral trapezius muscles. Spurling's sign is positive on the left. She has trialed physical therapy with some pain benefit. She is doing a home exercise program. MRI Cervical Spine shows mild disc herniation and degenerative changes at C4-5 causing no significant impression upon the cord or nerve roots. Mild disc herniation and degenerative changes at C5-6 level causing mild flattening of the dural sac and mild to moderate left sided foraminal stenosis. Minimal disc bulge at C3-4 level. We discussed treatment options 1. Repeat trigger point injections in her right trapezius muscle under ultrasound guidance. The risks and benefits of the procedure were discussed in detail. She wishes to proceed. An appointment ahs been made and she needs a concrete mixer truck driver on the day of the procedure. 2. She might also benefit from a repeat cervical epidural steroid injection under fluoroscopic guidance in the future. [email or web address] Not available 03/01/2018 08:49:20 03/01/2018 03/01/2018 Domonique Hudson is a 57 year old woman with complaints of neck pain radiating into right upper extremity. On exam, she has trigger points in right trapezius muscle. She has trialed physical therapy with some pain benefit. She is doing a home exercise program. MRI Cervical Spine shows mild disc herniation and degenerative changes at C4-5 causing no significant impression upon the cord or nerve roots. Mild disc herniation and degenerative changes at C5-6 level causing mild flattening of the dural sac and mild to moderate left sided foraminal stenosis. Minimal disc bulge at C3-4 level. She is here for a trigger point injections in her right trapezius muscle under ultrasound guidance. The risks and benefits of the procedure were discussed in detail. She wishes to proceed. She will follow up in four weeks for a repeat injection. [email or web address] Not available 03/01/2018 11:15:36 Plan of Treatment Reminders Order Date Submit Date Provider Last Modified By Organization Details Last Modified Time Details Appointments None record ed. Lab None record ed. Referral None record ed. Procedures None record ed. Surgeries None record ed. Imaging None record ed. Medication Orders None record ed. Patient TargetsNo targets recorded. Patient Instructions Encounter Date Encounter Id Patient Instructions Last Modified By Organization Details Last Modified Time 02/10/2017 [id number] She was advised to continue with activties as tolerated [email or web address] Not available 02/10/2017 11:11:49 02/24/2017 [id number] She was advised to continue with activties as tolerated [email or web address] Not available 02/26/2017 11:05:11 03/26/2017 [id number] She was advised to continue with activties as tolerated [email or web address] Not available 04/08/2017 14:26:49 02/26/2018 [id number] She was advised to continue with activties as tolerated [email or web address] Not available 03/01/2018 08:44:27 03/01/2018 [id number] She was advised to continue with activties as tolerated [email or web address] Not available 03/01/2018 11:13:32 Reason for Referral None Reported. Problems Name Problem SNOMED Code Status Onset Date Resolution Date Notes Provider Name and Address Organization Details Recorded Time Muscle pain 12297499 Active Steffanie rocha MD [address] , [address], [place], [address], [place] [facility] 8 09:03:50 Cervical radiculopathy 24924601 Active Steffanie rocha MD [address] , [address], [place], [address], [place] [facility] 8 09:03:46 Degeneration of cervical intervertebral disc 63936382 Active Steffanie rocha MD [address] , [address], [place], [address], [place] [facility] 8 09:03:54 Problem Notes None recorded. Procedures Surgical History Date Name Laterality Status Provider Name and Address Organization Details Recorded Time 03/01/20 18 Trigger Point Injections under ultrasound guidance completed Steffanie Luna MD [address] [facility] , [address], [place], [address], [place] [facility] 03/01/2018 11:16:55 02/25/20 17 Cervical Epidural Steroid injection under fluroscopic guidance completed Steffanie Luna MD [address] [facility] , [address], [place], [address], [place] [facility] 02/26/2017 10:59:49 02/11/20 17 Trigger Point Injections under ultrasound guidance completed Steffanie Luna MD [address] [facility] , [address], [place], [address], [place] [facility] 02/10/2017 11:14:55 01/28/20 17 Trigger Point Injections under ultrasound guidance completed Steffanie Luna MD [address] , [address], [place], [address], [place] [facility] 01/28/2017 09:09:59 Appendectomy completed Kitty Guy [place] [facility] 01/16/2017 10:39:37 Caesarean Section completed Kitty Guy [place] [facility] 01/16/2017 10:40:57 Other completed Kitty Guy [place] [facility] 01/16/2017 10:41:18 Other completed Kitty Guy [place] [facility] 01/16/2017 10:42:45 Imaging Results None recorded. Procedure Notes None recorded. Medical Equipment None Reported. Allergies No known drug allergies Medications Name Sig Start Date Stop Date Status Note LastModified by Organization Details LastModified Time alendronate 70 mg tablet active Not Available Not Available Not Available doxepin 10 mg capsule active Not Available Not Available N ot Available aspirin 81 mg tablet,delay ed release Take 1 tablet every day by oral route. active Not Available Not Available No t Available levothyroxin e 25 mcg tablet Take 1 tablet every day by oral route. active Not Available Not Available No t Available gabapentin 100 mg capsule active Not Available Not Available Not Available loratadine 10 mg tablet active Not Available Not Available Not Available Vitamin D3 25 mcg (1,000 unit) capsule active Not Available Not Available Not Available calcium 250 mg daily active Not Available Not Available No t Available Vitamin D 1000unit s daily active Not Available Not Available No t Available fenofibrate nanocrystall ized 48 mg tablet active Not Available Not Available Not Available fenofibrate 40 mg tablet Take 2 tablets every day by oral route. 02/26 completed Not Available Not Available Not Available Vitals Date Recorded Body height Heart rate Oxygen saturation Oxygen saturation in Arterial blood by Pulse oximetry Systolic blood pressure Diastolic blood pressure Provider Name and Address Organization Details Last Updated DateTime 7 154.94 cm 76 /min 99 % 99 % 133 mm[Hg] 72 mm[Hg] Kitty Guy [place] [facility] 7 10:05:15 Date Recorded Body height Heart rate Oxygen saturation Oxygen saturation in Arterial blood by Pulse oximetry Systolic blood pressure Diastolic blood pressure Provider Name and Address Organization Details Last Updated DateTime 7 154.94 cm 72 /min 99 % 99 % 144 mm[Hg] 77 mm[Hg] Kitty Guy [place] [facility] 7 14:11:32 Date Recorded Body height Heart rate Oxygen saturation Oxygen saturation in Arterial blood by Pulse oximetry Systolic blood pressure Diastolic blood pressure Provider Name and Address Organization Details Last Updated DateTime 7 154.94 cm 79 /min 98 % 98 % 126 mm[Hg] 74 mm[Hg] Kitty Guy [place] [facility] 7 10:19:46 Date Recorded Body height Heart rate Oxygen saturation Oxygen saturation in Arterial blood by Pulse oximetry Body mass index (BMI) Body weight Systolic blood pressure Diastolic blood pressure Provider Name and Address Organization Details Last Updated DateTime 8 154.94 cm 74 /min 98 % 98 % 23.6 kg/m2 96009.0 5 g 136 mm[Hg] 75 mm[Hg] Kitty Limazier [place] [facility] 8 10:04:34 Date Recorded Body height Heart rate Oxygen saturation Oxygen saturation in Arterial blood by Pulse oximetry Systolic blood pressure Diastolic blood pressure Provider Name and Address Organization Details Last Updated DateTime 8 154.94 cm 67 /min 99 % 99 % 135 mm[Hg] 76 mm[Hg] Kitty Limazier [place] [facility] 8 10:44:56 Social History Question Answer Notes LastModified by Organizat ion Details LastModified Time Tobacco Smoking Status Never Smoker Not Available [facility] 08/17/2020 03:16:11 What Is Your Level Of Alcohol Consumption? None [id number] Information not available 08/17/2020 Are You Currently Employed? No [id number] Information not available 08/17/2020 Which Illicit Or Recreational Drugs Have You Used? No [id number] Information not available 08/17/2020 Education 12 Information no t available 01/16/2017 Live Alone Or With Others? With Others Information not available 01/16/2017 Marital Status Informatio n not available 01/16/2017 What Was The Date Of Your Most Recent Tobacco Screening? 03/01/2018 [id number] Information not available 08/17/2020 Sex: Unknown Functional Status None recorded. Mental Status None recorded. Family History Nothing Reported. Medical History Condition Response Arthritis Y Hyperthyroidism Y High Cholesterol Y Gynecological HistoryNo gynecological history recorded. Obstetrics History GPAL:G 0 P 0 0 0 0 Past Encounters Encounter ID Performer Location Encounter Start Date Encounter Closed Date Diagnosis/Indication Diagnosis SNOMED-CT Code Diagnosis ICD10 Code Diagnosis Note [id number] Steffanie Luna MD PAIN OFFICE [address] [facility],[address] [place] [address] 01/16/2017 10:16:23 01/22/2017 20:12:19 Muscle pain 87828915 M79.1 Cervical radiculopathy 73331419 M54.12 Degenerati on of cervical intervertebral disc 60652236 M50.322 [id number] Steffanie Luna MD PAIN OFFICE [address] [facility] [place] [address] 01/27/2017 11:11:14 01/28/2017 09:20:51 Muscle pain 40672916 M79.1 Cervical radiculopathy 61228575 M54.12 Degenerati on of cervical intervertebral disc 91817378 M50.322 [id number] Steffanie Luna MD PAIN OFFICE [address] [facility] [address] 02/10/2017 09:59:55 02/10/2017 11:20:29 Muscle pain 54793692 M79.1 Cervical radiculopathy 12643489 M54.12 Degenerati on of cervical intervertebral disc 93330986 M50.322 [id number] Steffanie Luna MD PAIN OFFICE [address] [place] [address] 02/24/2017 13:53:20 02/26/2017 11:17:46 Muscle pain 48179694 M79.1 Cervical radiculopathy 38367493 M54.12 Degenerati on of cervical intervertebral disc 31062081 M50.322 [id number] Steffanie Luna MD PAIN OFFICE [address] [place] [address] 03/26/2017 10:15:52 04/09/2017 10:12:54 Muscle pain 86243348 M79.1 Cervical radiculopathy 75833163 M54.12 Degenerati on of cervical intervertebral disc 20538765 M50.322 [id number] Steffanie Luna MD PAIN OFFICE [address] [place] [address] 02/26/2018 09:48:20 03/01/2018 08:50:37 Muscle pain 88173548 M79.1 Cervical radiculopathy 46802408 M54.12 Degenerati on of cervical intervertebral disc 33951069 M50.322 [id number] Steffanie Luna MD PAIN OFFICE [address] [facility] [place] [address] 03/01/2018 10:29:25 03/01/2018 11:17:26 Muscle pain 40595528 M79.1 Cervical radiculopathy 25329494 M54.12 Degenerati on of cervical intervertebral disc 74810205 M50.322 Health Concerns Section Related Observation LastModified by Organization Detai ls LastModified Time None Recorded Concern Status LastModified by Organization Details LastModified Time None Recorded Advance Directives Directive None Recorded Payers Encounter Date Sequence Insurance Name Policy Number Policy Rg Covered Member ID Rg Member ID Guarantor Name 02/10/2017 1 [facility] [id number] Domonique Wanda Hudson [id number] Domonique Wanda Hudson 02/24/[address] [facility] [id number] Domonique Wanda Hudson [id number] Domonique Wanda Hudson 03/26/2017 1 [facility] [id number] Domonique Wanda Hudson [id number] Domonique Wanda Hudson 02/26/2018 1 [facility] (MEDICAID HMO) [id number] Domonique Wanda Hudson [id number] Domonique Wanda Hudson 03/01/2018 1 [facility] NET PLAN (MEDICAID HMO) [id number] Domonique Wanda Hudson [id number] Domonique Wanda Hudson Notes Date Note Type Note Provider Name and Address Organization Details Recorded Time 02/10/2017 text/html She is here for a repeat trigger point injection under ultrasound guidance. She reports some pain benefit after last injection for a few days. She states her pain in her left upper extremity is concerning for her. She has numbness and tingling in her left upper extremity. She has no history of bladder or bowel incontinence. Steffanie Luna MD [email or web address] , [address], [place], [address], [facility] 02/11/2017 15:56:31 02/24/2017 text/html She is here for a trial of cervical epidural steroid injection under fluoroscopic guidance. Steffanie Luna MD [address] [facility] , [address], [place], [address], [facility] 03/02/2017 15:31:51 03/26/2017 text/html She is here for a follow up to a cervical epidural steroid injection under fluoroscopic guidance. She reports 90% pain benefit which is ongoing. She states she has minimal pain in her upper extremities. Her activity level is up . She has no history of bladder or bowel incontinence. Steffanie Luna MD [address] [facility] , [address], [place], [address], [facility] 04/09/2017 16:37:30 02/26/2018 text/html Domonique Hudson is a 56 year old right handed woman with complaints of neck pain radiating into both upper extremities She states she also has numbness and tingling in her left hand. She was last seen in 03/26/2017 and reported good ongoing benefit from a cervical epidural steroid injection under fluoroscopic guidance on 02/24/2017. She states she had return of pain one month ago and pain is back to baseline. She reports some pain benefit with trigger point injection .She states she had some swelling of her left eye after last cervical epidural steroid injection which resolved within a day or two but she is concerned it may occur again with a repeat injection. She has no history of bladder or bowel incontinence. MRI Cervical Spine shows mild disc herniation and degenerative changes at C4-5 causing no significant impression upon the cord or nerve roots. Mild disc herniation and degenerative changes at C5-6 level causing mild flattening of the dural sac and mild to moderate left sided foraminal stenosis. Minimal disc bulge at C3-4 level.She is Nepali speaking and has a friend who is interpreting for her today. She is able to communicate a little in Danish. Steffanie Luna MD [address] [facility] , [address], [place], [address], [facility] 03/02/2018 08:24:30 03/01/2018 text/html She is here for a trial of trigger point injection in right trapezius muscle under ultrasound guidance. Steffanie Luna MD [address] [facility] , [address], [place], [address], [facility] 03/02/2018 08:24:41 OBGyn Episode No OBEpisode recorded.
== END 2024-11-28 09:02 | disposition home or self-care (01) ==
LOC: HO.LAB 09:01
PROVIDERS: PCP Internal Medicine; Visit Provider Internal Medicine
DX: E78.2 Mixed hyperlipidemia (principal); E78.5 Hyperlipidemia, unspecified; E03.9 Hypothyroidism, unspecified; E55.9 Vitamin D deficiency, unspecified
CPT/HCPCS: 36415; 80053; 80061; 82306; 84443

== ENCOUNTER 2024-12-26 11:26 | Inpatient (IN) | payer OTHER, SELFPAY ==
--- NOTE | ~2024-12-26 | US_ITS ---
EXAMINATION: US ABDOMEN LIMITED HISTORY: RUQ pain +Hermosillo sign TECHNIQUE: Real-time grayscale ultrasound imaging of the right upper quadrant was performed and images were reviewed. COMPARISON: There are no prior studies for comparison. FINDINGS: Liver: The right lobe of the liver measures 15.2 cm in size. The left lobe of the liver measures 10.6 cm in size. The liver demonstrates normal homogeneous echotexture. No focal mass or intrahepatic biliary ductal dilatation is identified. There is normal hepatopedal flow in the portal vein. Gallbladder and biliary tree: There is a shadowing 1.8 cm calculus in the gallbladder neck. There is no wall thickening or pericholecystic fluid. The technologist reports focal pain over the gallbladder consistent with a sonographic Hermosillo sign. The common bile duct is normal in caliber measuring 4 mm. Right Kidney: The right kidney measures 9.7 cm in length. The right kidney is unremarkable, without evidence of masses, hydronephrosis, or calculi. Pancreas: The pancreatic head, neck, and body are unremarkable. The pancreatic tail is obscured by bowel gas. Abdominal aorta and inferior vena cava: The visualized portions of the abdominal aorta and inferior vena cava are normal in caliber. There is no free fluid in the right upper quadrant. US/US abdomen limited IMPRESSION: Cholelithiasis and a positive sonographic Hermosillo sign. Findings are compatible with acute cholecystitis. Electronically signed by: Scott Lemus MD 12/26/2024 03:50 PM EST
[2024-12-26 12:33] VITALS: BP 141/70; PULSE 64; RESP 16; TEMP 35.9; O2SAT 98; BMI 23.7
--- NOTE | 2024-12-26 12:33 | ED_ITS ---
HPI - General Adult General Chief complaint: Abdominal Pain Stated complaint: l side pain Time Seen by Provider: 12/26/24 16:25 Source: patient Limitations: language barrier History of Present Illness ED Provider: Sophy Castro PA-C HPI narrative: 64-year-old female with a history of HLD, fibromyalgia, hypothyroid presents with right upper quadrant discomfort x3 days. Pain is nonradiating, unable to describe the nature of her discomfort. When patient eats it causes nausea and discomfort. Denies fever. Related Data Home Medications ?Medication ?Instructions ?Recorded ?Confirmed trazodone 50 mg tablet mg PO 11/13/20 04/25/24 Previous Rx's ?Medication ?Instructions ?Recorded calcium 1,000 mg (as 1 tab PO DAILY 90 days #90 tabs 12/30/23 carbonate)-vitamin D3 20 mcg (800 unit) tablet docusate sodium 100 mg capsule 100 mg PO BID PRN constipation 90 02/23/24 days #180 caps fluticasone propionate 50 2 spray intranasal DAILY #16 grams 03/28/24 mcg/actuation nasal spray,suspension (Flonase Allergy Relief) fenofibrate nanocrystallized 48 mg 48 mg PO DAILY 90 days #90 tabs 04/18/24 tablet duloxetine 30 mg capsule,delayed 30 mg PO BID 30 days #60 caps 09/04/24 release (Cymbalta) cetirizine 10 mg tablet (All Day 10 mg PO DAILY PRN allergy 11/16/24 Allergy (cetirizine)) symptoms 90 days #90 tabs levothyroxine 50 mcg tablet 50 mcg PO DAILY 90 days #90 tabs 12/25/24 Allergies Allergy/AdvReac Type Severity Reaction Status Date / Time No Known Allergies Allergy Verified 12/26/24 12:34 Review of Systems 2 Review of Systems: Yes all other systems are reviewed and are negative Constitutional: Constitutional: Denies fatigue and Denies fever(s) Cardiovascular: Cardiovascular: Denies chest pain and Denies dyspnea Respiratory: Respiratory: Denies cough and Denies dyspnea Gastrointestinal: Gastrointestinal: Reports abdominal pain, Denies diarrhea, Reports nausea and Reports vomiting Endocrine: Endocrine: Denies fatigue PMFSH Past Medical History Attestation statement: The following information was validated with the patient. Medical History Osteopenia Mixed hyperlipidemia Hypercalcemia Skin lesion Fibromyalgia Hypothyroidism Constipation by delayed colonic transit Hypertriglyceridemia Insomnia Osteoporosis Surgical History Previous section History of appendectomy Family History Family History Father Hypertension Mother No problems noted. Social History Social History Household Members: Spouse and Family Housing: House Alcohol intake: current Alcohol intake frequency: holidays/special occasions only Alcohol type: beer and wine Patient Tobacco Use Status: Never used Tobacco e-Cigarette/Vaping Use: Never Used Second Hand Smoke Exposure: No Advance Directives: No Advance Directives Information Provided: Yes service: No Current occupational status: retired Sexual orientation: Straight/Heterosexual Gender identity: Female Cognitive needs: No Hearing needs: No Vision needs: Yes Physical Exam ED Vital Signs: Vital Signs - 24 hr 12/26/24 12:33 12/26/24 15:50 12/26/24 16:52 Temperature 96.7 F L 97.5 F 98.3 F Pulse Rate 64 64 70 Respiratory Rate 16 16 16 Blood Pressure 141/70 H 138/72 147/82 H Pulse Oximetry 98 98 100 Oxygen Delivery Method Room Air Room Air Room Air BMI result Body Mass Index 23.7 Const Other: Alert Orientation/consciousness: patient oriented x3 Resp Effort & Inspection: normal respiratory effort Cardio Other: Normal peripheral perfusion GI Other: Abdomen is soft, nondistended, mild tenderness epigastric and right upper quadrant without guarding Skin Other: Warm dry no rash Neuro General: patient oriented x3, gait normal, no focal motor deficits and CN's II- XI intact bilaterally Psych Other: Cooperative Course Course Course Narrative: This is a Rapid Medical Examination (RME) performed by Scottie Branch PA-C in triage. Full HPI, ROS, assessment and treatment plan per primary provider in the Main ED. 64 yo Luxembourgish speaking female hx of HLD, fibromyalgia, hypothyroid here for eval of RUQ pain x3 days. denies fever, N/V/D, constipation, urinary symptoms. surgical hx: appendectomy in 1983. +well appearing, +hermosillo sign. Plan: labs, UA, abd US Consultations Consultation #1: paging Dr. Chambers he will be admitting the patient to his service Time: 17:00 Medications Administered Generic Name Dose Route Start Last Admin Trade Name Freq PRN Reason Stop Dose Admin Sodium Chloride 500 mls @ 500 mls/hr 12/26/24 17:06 12/26/24 17:46 Ns IV 12/26/24 18:05 500 mls/hr .Q1H ONE Administration Discontinued Medications Generic Name Dose Route Start Last Admin Trade Name Freq PRN Reason Stop Dose Admin Morphine Sulfate 4 mg 12/26/24 17:06 12/26/24 17:46 Morphine Sulfate 4 Mg/Ml Cartridge IVPUSH 12/26/24 17:07 4 mg ONCE ONE Administration Protocol Ondansetron HCl 4 mg 12/26/24 17:06 12/26/24 17:46 Ondansetron Hcl 4 Mg/2 Ml Vial IVPUSH 12/26/24 17:07 4 mg ONCE ONE Administration Medical Decision Making Medical Decision Making MDM Narrative: 64-year-old female with a history of HLD, fibromyalgia, hypothyroid presents with right upper quadrant discomfort x3 days. Pain is nonradiating, unable to describe the nature of her discomfort. When patient eats it causes nausea and discomfort. Denies fever. Problem: Age History: Per patient I have considered the following differential diagnoses: Biliary colic, cholecystitis, gastritis, pancreatitis Plan: Screening labs including LFTs and an ultrasound of the right upper quadrant were already obtained from triage, there was concern for cholecystitis. Based on my exam, I would call it more biliary colic, however the patient was still complaining of pain. We will be reaching out to Dr. Chambers for surgical consult. Giving morphine Zofran and IV fluid , I am making her NPO. I have independently reviewed the following tests: Labs: No leukocytosis, not anemic, no electrolyte abnormality, AST and ALT are minimally elevated Ultrasound right upper quadrant: US/US abdomen limited IMPRESSION: Cholelithiasis and a positive sonographic Hermosillo sign. Findings are compatible with acute cholecystitis. Electronically signed by: Scott Lemus MD 12/26/2024 03:50 PM [facility] Lab Data 12/26/24 13:48 12/26/24 13:48 Labs: Lab Results 12/26/24 12/26/24 Range/Units 13:48 17:09 WBC 8.0 (4.8-10.8) X10*3/uL RBC 4.78 (4.20-5.50) X10*6/uL Hgb 13.7 (12.0-16.0) g/dl Hct 41.8 (37.0-47.0) % MCV 87.4 (80.0-98.0) fL MCH 28.7 (27.0-33.0) pg MCHC 32.8 (31.0-35.0) g/dl RDW 13.0 (11.0-16.0) % Plt Count 245 (160-400) X10*3/uL MPV 10.8 (9.4-12.3) fL Immature Gran % (Auto) 0.4 (0.0-0.4) % Neut % (Auto) 71.9 (45-73) % Lymph % (Auto) 15.9 L (20-40) % Letcher % (Auto) 7.9 (2-11) % Eos % (Auto) 3.5 (0-4) % Baso % (Auto) 0.4 (0-2) % Lymph # (Auto) 1.3 (1.2-4.9) X10*3/uL Letcher # (Auto) 0.6 (0.1-1.2) X10*3/uL Eos # (Auto) 0.3 (0.0-0.4) X10*3/uL Baso # (Auto) 0.0 (0.0-0.2) X10*3/uL Abs Immat Gran (auto) 0.03 (0.00-0.03) X10*3/uL Absolute Neuts (auto) 5.8 (2.0-8.3) x10*3/uL Absolute Nucleated RBC 0.000 (0.0-0.012) X10*3/uL Nucleated RBC % (auto) 0.0 (0.0-0.2) /100WBC Sodium 142 (135-145) mmol/L Potassium 4.1 (3.3-5.1) mmol/L Chloride 109 H (96-108) mmol/L Carbon Dioxide 26 (22-29) mmol/L Anion Gap 11 L (12-20) BUN 12 (9-16) mg/dL Creatinine 0.74 (0.5-1.4) mg/dL Estim Creat Clear Calc 56.4 Estimated GFR > 60 Random Glucose 103 (60-115) mg/dL Calcium 9.9 D (8.4-10.2) mg/dL Magnesium 2.0 (1.6-2.6) mg/dL Total Bilirubin 0.4 (0.0-1.0) mg/dL AST 53 H (5-31) U/L ALT 51 H (0-31) U/L Alkaline Phosphatase 84 (39-117) U/L Total Protein 7.7 (6.5-8.0) g/dL Albumin 4.3 (3.5-5.0) g/dL Lipase 19 (8-78) U/L Urine Color Yellow Urine Appearance Turbid Urine pH 8.5 (5.0-9.0) Ur Specific Prosser 1.015 (1.005-1.025) Urine Protein Negative (Neg-Trace) mg/dL Urine Glucose (UA) Negative (Negative) mg/dL Urine Ketones Negative (Negative) mg/dL Urine Blood Negative (Negative) Urine Nitrite Negative (Negative) Ur Leukocyte Esterase Small (1+) H (Negative) Urine RBC 0-2 (0-2) /HPF Urine WBC 0-5 (0-5) /HPF Ur Squamous Epith Cells 0-2 (0-2) /HPF Other Crystals Present Urine Bacteria None Seen (None Seen) Hyaline Casts 0-2 (0-2) /LPF Discharge Plan Discharge Clinical Impression: Acute cholecystitis due to biliary calculus Patient Disposition: Admitted As Inpatient
[2024-12-26 13:54] LABS: MANUAL DIFF FLAG NO
[2024-12-26 13:57] LABS: Basophils Percent Auto 0.4 % (0-2); Eosinophils Absolute Auto 0.3 X10*3/uL (0.0-0.4); Eosinophils Percent Auto 3.5 % (0-4); Hematocrit 41.8 % (37.0-47.0); Hemoglobin 13.7 g/dl (12.0-16.0); Imm Gran Abs Auto 0.03 X10*3/uL (0.00-0.03); Imm Gran Pct Auto 0.4 % (0.0-0.4); Lymphocytes Absolute Auto 1.3 X10*3/uL (1.2-4.9); Lymphocytes Percent Auto 15.9 % (20-40); Mean Corpuscular HGB Conc 32.8 g/dl (31.0-35.0); Mean Corpuscular Hemoglobin 28.7 pg (27.0-33.0); Mean Corpuscular Volume 87.4 fL (80.0-98.0); Mean Platelet Volume 10.8 fL (9.4-12.3); Monocytes Absolute Auto 0.6 X10*3/uL (0.1-1.2); Monocytes Percent Auto 7.9 % (2-11); Neutrophils Absolute Auto 5.8 x10*3/uL (2.0-8.3); Neutrophils Percent Auto 71.9 % (45-73); Platelet Count 245 X10*3/uL (160-400); Red Blood Count 4.78 X10*6/uL (4.20-5.50)
[2024-12-26 14:08] LABS: Alanine Aminotransferase 51 U/L (0-31); Albumin Level 4.3 g/dL (3.5-5.0); Alkaline Phosphatase 84 U/L (39-117); Anion Gap 11 (12-20); Aspartate Amino Transferase 53 U/L (5-31); Bilirubin Total 0.4 mg/dL (0.0-1.0); Blood Urea Nitrogen 12 mg/dL (9-16); Calcium 9.9 mg/dL (8.4-10.2); Carbon Dioxide 26 mmol/L (22-29); Chloride 109 mmol/L (96-108); Creatinine Clr Calc Pharmacy 56.4; Estimated Glomerular Filt Rate > 60; Glucose Random 103 mg/dL (60-115); Lipase 19 U/L (8-78); Potassium 4.1 mmol/L (3.3-5.1); Sodium 142 mmol/L (135-145); Total Protein 7.7 g/dL (6.5-8.0)
[2024-12-26 15:50] VITALS: BP 138/72; PULSE 64; RESP 16; TEMP 36.4; O2SAT 98
[2024-12-26 16:52] VITALS: BP 147/82; PULSE 70; RESP 16; TEMP 36.8; O2SAT 100
[2024-12-26 17:18] LABS: Appearance Urine Turbid; Color Urine Yellow; Glucose Urine UA Negative (Negative); Leukocyte Esterase Urine Small (1+) (Negative); Nitrite Urine Negative (Negative); PH 8.5 (5.0-9.0); Specific Gravity - Urine 1.015 (1.005-1.025); UMIC TRIGGER UACC YES; Urine Blood Negative (Negative); Urine Ketones Negative (Negative); Urine Protein Negative (Neg-Trace)
[2024-12-26 17:25] LABS: Bacteria Urine None Seen (None Seen); Hyaline Casts Urine 0-2 /LPF (0-2); Other Crystals Urine Present; RBC Urine 0-2 /HPF (0-2); Squamous Epithelial Cell Urine 0-2 /HPF (0-2); UACC Culture Trigger YES; WBC Urine 0-5 /HPF (0-5)
[2024-12-26 17:46] VITALS: RESP 16
[2024-12-26] MEDS: Morphine Sulfate 4 MG/ML CARTRIDGE IVPUSH (17:46)
[2024-12-26] MEDS: ondansetron HCL 4 MG/2 ML VIAL IVPUSH (17:46)
[2024-12-26] MEDS: 0.9 % Sodium Chloride 500 ML IV (17:46)
--- OUTSIDE RECORDS SUMMARY | 2024-12-26 18:40 | XMS_ITS | Data Portability ---
Author Organization [facility] PA[facility] Address [address] [address] Care Team Providers Care Workday Manager Name Role Phone ROMERO SAMANTHA Referring Provider [phone] Assessment Encounter Date Assessment Date Assessment LastModified [...] has been made and she needs a train driver on the day of the procedure. [...] ahs been made and she needs a train driver on the day of the procedure. [...] By Organization Details Last Modified Time 02/10/2017 [id number] She was advised to continue with activties as tolerated tmanikantan Not available 02/10/2017 11:11:49 02/24/2017 [id number] She was advised to continue with activties as tolerated tmanikantan Not available 02/26/2017 11:05:11 03/26/2017 [id number] She was advised to continue with activties as tolerated tmanikantan Not available 04/08/2017 14:26:49 02/26/2018 [id number] She was advised to continue with activties as tolerated tmanikantan Not available 03/01/2018 08:44:27 03/01/2018 [id number] She was advised to continue with activties as tolerated tmanikantan Not available 03/01/2018 11:13:32 Reason for Referral None Reported. Problems Name Problem SNOMED Code Status Onset Date Resolution Date Notes Provider Name and Address Organization Details Recorded Time Muscle pain 09189203 Active Steffanie rocha MD [address] , [address], [place], [address], [place] [facility] 8 09:03:50 Cervical radiculopathy 88292077 Active Steffanie rocha MD [address] , [address], [place], [address], [place] [facility] 8 09:03:46 Degeneration of cervical intervertebral disc 90796846 Active Steffanie rocha MD [address] , [address], [place], [address], [place] [facility] 8 09:03:54 Problem Notes None recorded. Procedures Surgical History Date Name Laterality Status Provider Name and Address Organization Details Recorded Time 03/01/20 18 Trigger Point Injections under ultrasound guidance completed Steffanie Luna MD [address] [facility] , [address], [place], [address], [place] [facility] 03/01/2018 11:16:55 02/25/20 17 Cervical Epidural Steroid injection under fluroscopic guidance completed Steffanie Luna MD [address] [facility] , [address], [place], [address], [place] [facility] 02/26/2017 10:59:49 02/11/20 17 Trigger Point Injections under ultrasound guidance completed Steffanie Luna MD [address] [facility] , [address], [place], [address], [place] [facility] 02/10/2017 11:14:55 01/28/20 17 Trigger Point Injections under ultrasound guidance completed Steffanie Luna MD [address] , [address], [place], [address], [place] [facility] 01/28/2017 09:09:59 Appendectomy completed Kitty Guy [place] [facility] 01/16/2017 10:39:37 Caesarean Section completed Kitty Guy [place] [facility] 01/16/2017 10:40:57 Other completed Kitty Guy [place] [facility] 01/16/2017 10:41:18 Other completed Kitty Guy [place] [facility] 01/16/2017 10:42:45 Imaging Results [...] % 133 mm[Hg] 72 mm[Hg] Kitty Guy [place] [facility] 7 10:05:15 Date Recorded Body height Heart rate Oxygen saturation Oxygen saturation in Arterial blood by Pulse oximetry Systolic blood pressure Diastolic blood pressure Provider Name and Address Organization Details Last Updated DateTime 7 154.94 cm 72 /min 99 % 99 % 144 mm[Hg] 77 mm[Hg] Kitty [facility] [place] [facility] 7 14:11:32 Date Recorded Body height Heart rate Oxygen saturation Oxygen saturation in Arterial blood by Pulse oximetry Systolic blood pressure Diastolic blood pressure Provider Name and Address Organization Details Last Updated DateTime 7 154.94 cm 79 /min 98 % 98 % 126 mm[Hg] 74 mm[Hg] Kitty Guy [place] [facility] 7 10:19:46 Date Recorded Body height Heart rate Oxygen saturation Oxygen saturation in Arterial blood by Pulse oximetry Body mass index (BMI) Body weight Systolic blood pressure Diastolic blood pressure Provider Name and Address Organization Details Last Updated DateTime 8 154.94 cm 74 /min 98 % 98 % 23.6 kg/m2 91963.0 5 g 136 mm[Hg] 75 mm[Hg] Kitty [...] Tobacco Smoking Status Never Smoker Not Available [facility] 08/17/2020 03:16:11 What Is Your Level Of Alcohol Consumption? None [id number] Information not available 08/17/2020 Are You Currently Employed? No [id number] Information not available 08/17/2020 Which Illicit Or Recreational Drugs Have You Used? No [id number] Information not available 08/17/2020 Education 12 Information no t available 01/16/2017 Live Alone Or With Others? With Others Information not available 01/16/2017 Marital Status Informatio n not available 01/16/2017 What Was The Date Of Your Most Recent Tobacco Screening? 03/01/2018 [id number] Information not available 08/17/2020 Sex: Unknown Functional Status None recorded. Mental Status None recorded. Family History Nothing Reported. Medical History Condition Response Hyperthyroidism Y Arthritis Y High Cholesterol Y Gynecological HistoryNo gynecological history recorded. Obstetrics History GPAL:G 0 P 0 0 0 0 Past Encounters Encounter ID Performer Location Encounter Start Date Encounter Closed Date Diagnosis/Indication Diagnosis SNOMED-CT Code Diagnosis ICD10 Code Diagnosis Note [id number] Steffanie Lnua MD PAIN OFFICE [address] [facility],[address] [place] [address] 01/16/2017 10:16:23 01/22/2017 20:12:19 Muscle pain 04392457 M79.1 Cervical radiculopathy 13897426 M54.12 Degenerati on of cervical intervertebral disc 83315974 M50.322 [id number] Steffanie Luna MD PAIN OFFICE [address] [employer] [address] [facility] [place] [address] 01/27/2017 11:11:14 01/28/2017 09:20:51 Muscle pain 28266909 M79.1 Cervical radiculopathy 93177434 M54.12 Degenerati on of cervical intervertebral disc 70153538 M50.322 [id number] Steffanie Luna MD PAIN OFFICE [address] [employer] [address] [facility] [place] [address] 02/10/2017 09:59:55 02/10/2017 11:20:29 Muscle pain 07393179 M79.1 Cervical radiculopathy 32890662 M54.12 Degenerati on of cervical intervertebral disc 33800296 M50.322 [id number] Steffanie Luna MD PAIN OFFICE [address] [employer] [place] [address] 02/24/2017 13:53:20 02/26/2017 11:17:46 Muscle pain 57821834 M79.1 Cervical radiculopathy 78994596 M54.12 Degenerati on of cervical intervertebral disc 24006928 M50.322 [id number] Steffanie Luna MD PAIN OFFICE [address] [employer] [place] [address] 03/26/2017 10:15:52 04/09/2017 10:12:54 Muscle pain 79251400 M79.1 Cervical radiculopathy 23356828 M54.12 Degenerati on of cervical intervertebral disc 17731420 M50.322 [id number] Steffanie Luna MD PAIN OFFICE [address] [employer] [place] [address] 02/26/2018 09:48:20 03/01/2018 08:50:37 Muscle pain 11272913 M79.1 Cervical radiculopathy 55457663 M54.12 Degenerati on of cervical intervertebral disc 52536767 M50.322 [id number] Steffanie Luna MD PAIN OFFICE [address] [employer] [facility] [place] [address] 03/01/2018 10:29:25 03/01/2018 11:17:26 Muscle pain 70850964 M79.1 Cervical radiculopathy 30619673 M54.12 Degenerati on of cervical intervertebral disc 91363120 M50.322 Health Concerns Section Related Observation LastModified by Organization Detai ls LastModified Time None Recorded Concern Status LastModified by Organization Details LastModified Time None Recorded Advance Directives Directive None Recorded Payers Encounter Date Sequence Insurance Name Policy Number Policy Rg Covered Member ID Rg Member ID Guarantor Name 02/10/2017 1 [facility] [id number] Domonique Wanda Hudson [id number] Domonique Wanda Hudson 02/24/2017 1 [facility] [id number] Domonique Wanda Hudson [id number] Domonique Wanda Hudson 03/26/2017 1 [facility] [id number] Domonique Wanda Hudson [id number] Domonique Wanda Hudson 02/26/2018 1 [facility] (MEDICAID HMO) [id number] Domonique Wanda Hudson [id number] Domonique Wanda Hudson 03/01/2018 1 [facility] HEALTH NET PLAN (MEDICAID HMO) [id number] Domonique Wanda Hudson [id number] Domonique Wanda Hudson Notes Date Note Type [...] or bowel incontinence. Steffanie Luna MD [address] , [address], [place], [address], [facility] - [facility] Management 02/11/2017 15:56:31 02/24/2017 text/html She is here for a trial of cervical epidural steroid injection under fluoroscopic guidance. Steffanie Luna MD [address] [facility] , [address], [place], [address], [facility] - Pain Management 03/02/2017 15:31:51 03/26/2017 text/html She is here for a follow up to a cervical epidural steroid injection under fluoroscopic guidance. She reports 90% pain benefit which is ongoing. She states she has minimal pain in her upper extremities. Her activity level is up . She has no history of bladder or bowel incontinence. Steffanie Luna MD [address] [facility] , [address], [place], [address], [facility] - Pain Management 04/09/2017 16:37:30 02/26/2018 text/html [...] Minimal disc bulge at C3-4 level.She is Peruvian speaking and has a friend who is interpreting for her today. She is able to communicate a little in Albanian. Steffanie Luna MD [address] [facility] , [address], [place], [address], [facility] - Pain Management 03/02/2018 08:24:30 03/01/2018 text/html She is here for a trial of trigger point injection in right trapezius muscle under ultrasound guidance. Steffanie Luna MD [address] [facility] , [address], [place], [address], [facility] 03/02/2018 08:24:41 OBGyn Episode No OBEpisode recorded.
[2024-12-26] MEDS: Piperacillin Sodium/Tazobactam 3.375 GM in 0.9 % Sodium Chloride 50 ML IV (19:31)
[2024-12-26] MEDS: Acetaminophen 1,000 MG/100 ML PIGGYBACK 400 MG IV (19:31)
[2024-12-26 20:35] VITALS: BP 116/60; PULSE 56; RESP 16; TEMP 36.8; O2SAT 98
[2024-12-26] MEDS: Dextrose 5 % and Lactated Ring 1,000 ML 125 ML IVCONT (20:48)
--- NOTE | 2024-12-26 20:57 | PHA.MEDREC ---
Addendum entered by Roberta Finch RPh 12/26/24 21:50: [facility] REVIEWED Original Note: Pharmacy Consult ? Medication Reconciliation Pharmacy has completed the medication reconciliation. Spoke with patient utilizing sole buffer and she was able to confirm her med rec. Patient confirmed she is taking her Duloxetine 30mg tab once a day as needed for body pains. She confirmed she is still taking the Fenofibrate 48mg tab once daily for high cholesterol and confirmed she is filling it at [facility] in [place]. She confirmed she took her Levothyroxine 50mcg tab this morning and everything else yesterday.
[2024-12-27] VITALS (16 sets, daily range): BP systolic 115–144; BP diastolic 41–72; PULSE 53–85; RESP 14–18; TEMP 36–36.8; O2SAT 97–100; BMI 21.7
[2024-12-27] MEDS: Acetaminophen 1,000 MG/100 ML PIGGYBACK 400 MG IV ×4 (00:21→19:16)
[2024-12-27] MEDS: Piperacillin Sodium/Tazobactam 3.375 GM in 0.9 % Sodium Chloride 50 ML IV ×3 (00:45→14:15)
[2024-12-27] MEDS: Dextrose 5 % and Lactated Ring 1,000 ML 125 ML IVCONT ×2 (04:01→19:16)
--- NOTE | 2024-12-27 07:42 | P.HPGS_ITS ---
History of Present Illness History of Present Illness Date of Service: 12/27/24 Chief complaint: ACUTE CHOLECYSTITIS Narrative: Domonique Hudson is a 64 year old female with the emergency department with complaints of abdominal pain in the right upper quadrant for approximately 3 days. The pain was made worse by eating food. She denies nausea or vomiting, fever or chills. She presented to the emergency department and was noted to have tenderness in the right upper quadrant. Workup revealed mild elevation of the transaminases but a normal WBC. Ultrasound of the abdomen confirmed a large gallstone at the neck of the gallbladder. There was no evidence of wall thickening, pericholecystic fluid, or common bile duct dilatation. Patient was admitted to the surgical service for further management of her probable acute cholecystitis. This morning she does feel improved but still has some pain in the right upper quadrant. Review of Systems Review of Systems: Yes all other systems are reviewed and are negative [facility] Past Medical History Medical History Osteopenia Mixed hyperlipidemia Hypercalcemia Skin lesion Fibromyalgia Hypothyroidism Constipation by delayed colonic transit Hypertriglyceridemia Insomnia Osteoporosis Family History Family History Father Hypertension Mother No problems noted. Surgical History Surgical History Previous section History of appendectomy Social History Social History Household Members: Spouse and Family Housing: House Alcohol intake: current Alcohol intake frequency: holidays/special occasions only Alcohol type: beer and wine Patient Tobacco Use Status: Never used Tobacco e-Cigarette/Vaping Use: Never Used Second Hand Smoke Exposure: No Advance Directives: No Advance Directives Information Provided: Yes service: No Current occupational status: retired Sexual orientation: Straight/Heterosexual Gender identity: Female Cognitive needs: No Hearing needs: No Vision needs: Yes Meds Allergies Allergy/AdvReac Type Severity Reaction Status Date / Time No Known Allergies Allergy Verified 12/26/24 12:34 Active Medications: Current Medications Hydromorphone HCl (Hydromorphone Hcl 0.5 Mg/0.5 Ml Syringe) 0.5 mg IVPUSH Q3H PRN; Protocol PRN Reason: Pain, Severe (Pain Scale 7-10) Acetaminophen (Ofirmev) 1,000 mg in 100 mls @ 400 mls/hr IV Q6H [facility] Stop: 12/27/24 12:14 Last Infusion: 12/27/24 06:23 Dose: Infused Dextrose/Lactated Ringer's (D5lr) 1,000 mls @ 125 mls/hr IVCONT .Q8H [facility] Last Admin: 12/27/24 04:01 Dose: 125 mls/hr Piperacillin Sod/Tazobactam (Sod 3.375 gm/ Sodium Chloride) 50 mls @ 100 mls/hr IV Q6H [facility] Last Infusion: 12/27/24 07:03 Dose: Infused Ondansetron HCl (Ondansetron Hcl 4 Mg/2 Ml Vial) 4 mg IVPUSH QID PRN PRN Reason: Nausea Oxycodone HCl (Oxycodone Hcl Immed Release 5 Mg Tablet) 5 mg PO Q6H PRN PRN Reason: Pain, Moderate(Pain Scale 4-6) Sodium Chloride (0.9 % Sodium Chloride Flush 3 Ml Syringe) 3 ml IVFLUSH QSHIFT [facility] Last Admin: 12/27/24 00:15 Dose: Not Given Zolpidem Tartrate (Zolpidem Tartrate 5 Mg Tablet) 5 mg PO BEDTIME PRN PRN Reason: Insomnia Home Medications ?Medication ?Instructions ?Recorded ?Confirmed ?Last Taken ?Type trazodone 50 mg tablet 50 mg PO BEDTIME PRN Insomnia 11/13/20 12/26/24 Unknown History duloxetine 30 mg capsule,delayed 30 mg PO DAILY PRN Body Pain 12/26/24 12/26/24 Unknown History release fluticasone propionate 50 2 spray intranasal DAILY PRN 12/26/24 12/26/24 Unknown History mcg/actuation nasal Allergy Symptoms spray,suspension levothyroxine 50 mcg tablet 50 mcg PO DAILY@0600 12/26/24 12/26/24 12/26/24 History Physical Exam Vital Signs: Vital Signs: Last Vital Signs Temp 98.1 F 12/27/24 06:00 Pulse 53 12/27/24 06:00 Resp 16 12/27/24 06:00 BP 140/64 H 12/27/24 06:00 Pulse Ox 97 12/27/24 06:00 O2 Del Method Room Air 12/27/24 06:00 BMI result Body Mass Index 23.7 Const: General: cooperative and no acute distress Nutritional Appearance: well nourished Orientation/consciousness: patient oriented x3 Limitations: no limitations HEENT: Head: Yes normocephalic and Yes atraumatic Ears: hearing grossly normal bilaterally Resp: Effort & Inspection: normal respiratory effort, no audible wheezes, no cough and no respiratory distress Cardio: Jugular venous distension: no JVD GI: Inspection: Yes normal to inspection Palpation (GI): Soft to palpation, Tenderness to palpation present (GI) in the RUQ and [place]'s sign positive, no guarding, not rigid and No hepatosplenomegaly present Skin: Other: Warm, dry, no rash Neuro: General: patient oriented x3 Extrem: General: Yes no clubbing, cyanosis or edema Results Results Labs: Short CBC 12/26/24 Range/Units 13:48 WBC 8.0 (4.8-10.8) X10*3/uL Hgb 13.7 (12.0-16.0) g/dl Hct 41.8 (37.0-47.0) % Plt Count 245 (160-400) X10*3/uL BMP 12/26/24 13:48 Sodium 142 Potassium 4.1 Chloride 109 H Carbon Dioxide 26 BUN 12 Creatinine 0.74 Calcium 9.9 D Liver Function 12/26/24 Range/Units 13:48 Total Bilirubin 0.4 (0.0-1.0) mg/dL AST 53 H (5-31) U/L ALT 51 H (0-31) U/L Alkaline Phosphatase 84 (39-117) U/L Albumin 4.3 (3.5-5.0) g/dL Urine 12/26/24 Range/Units 17:09 Urine Color Yellow Urine Appearance Turbid Urine pH 8.5 (5.0-9.0) Ur Specific [place] 1.015 (1.005-1.025) Urine Protein Negative (Neg-Trace) mg/dL Urine Glucose (UA) Negative (Negative) mg/dL Assessment and Plan (1) Acute cholecystitis due to biliary calculus: Status: Acute Plan 64-year-old female patient presenting with complaints of right upper quadrant abdominal pain found to have evidence of biliary obstruction due to cholelithiasis. We discussed the option of laparoscopic or possible open cholecystectomy this morning. After discussion of the procedure, risks, and alternatives, she consents to a laparoscopic or possible open cholecystectomy. She has been added onto the operative schedule for today. Quality Stroke Does the patient have a stroke diagnosis?: No VTE Prior VTE?: No VTE Risk Level:: Surgical - moderate VTE Device Contraindication: N/A - Device Ordered VTE Drug Contraindication: Treatment Not Indicated Procedures Date of Service Date of Service: 12/27/24
--- NOTE | 2024-12-27 13:22 | MHC.CM.PN ---
PT LIVES WITH IS INDEPEDENT HAS OWN RIDE HOME HAD NO PREVIOUS SERVICES DC PLAN HOME NO SERVICES
--- NOTE | 2024-12-27 17:05 | P.CONAN_ITS ---
HPI - Anesthesia Eval Consult details Narrative: 64 F for cholecystectomy PMFSH Active Problems Active Problems: All Active Problems Acute cholecystitis due to biliary calculus (Acute) Left knee pain (Acute) Hypertriglyceridemia (Acute) Lumbar back pain (Acute) Right hip pain (Acute) Screening for cervical cancer (Acute) Physical exam (Acute) Osteopenia (Acute) Mixed hyperlipidemia (Acute) Hypercalcemia (Acute) Skin lesion (Acute) Fibromyalgia (Acute) History of appendectomy (Acute) Hypothyroidism (Acute) Constipation by delayed colonic transit (Acute) Insomnia (Acute) Past Medical History Medical History Osteopenia Mixed hyperlipidemia Hypercalcemia Skin lesion Fibromyalgia Hypothyroidism Constipation by delayed colonic transit Hypertriglyceridemia Insomnia Osteoporosis Family History Family History Father Hypertension Mother No problems noted. Family history of problems with anesthesia: No Surgical History Surgical History Previous section History of appendectomy History of Problems with Anesthesia: No Social History Social History Household Members: Spouse and Family Housing: House Alcohol intake: current Alcohol intake frequency: holidays/special occasions only Alcohol type: beer and wine Patient Tobacco Use Status: Never used Tobacco e-Cigarette/Vaping Use: Never Used Second Hand Smoke Exposure: No service: No Current occupational status: retired Sexual orientation: Straight/Heterosexual Gender identity: Female Cognitive needs: No Hearing needs: No Vision needs: Yes Meds Allergies Allergy/AdvReac Type Severity Reaction Status Date / Time No Known Allergies Allergy Verified 12/26/24 12:34 Active Medications: Current Medications Hydromorphone HCl (Hydromorphone Hcl 0.5 Mg/0.5 Ml Syringe) 0.5 mg IVPUSH Q3H PRN; Protocol PRN Reason: Pain, Severe (Pain Scale 7-10) Dextrose/Lactated Ringer's (D5lr) 1,000 mls @ 125 mls/hr IVCONT .Q8H [facility] Last Infusion: 12/27/24 14:15 Dose: Infused Piperacillin Sod/Tazobactam (Sod 3.375 gm/ Sodium Chloride) 50 mls @ 100 mls/hr IV Q6H [facility] Last Infusion: 12/27/24 14:45 Dose: Infused Ondansetron HCl (Ondansetron Hcl 4 Mg/2 Ml Vial) 4 mg IVPUSH QID PRN PRN Reason: Nausea Oxycodone HCl (Oxycodone Hcl Immed Release 5 Mg Tablet) 5 mg PO Q6H PRN PRN Reason: Pain, Moderate(Pain Scale 4-6) Sodium Chloride (0.9 % Sodium Chloride Flush 3 Ml Syringe) 3 ml IVFLUSH QSHIFT [facility] Last Admin: 12/27/24 09:14 Dose: Not Given Zolpidem Tartrate (Zolpidem Tartrate 5 Mg Tablet) 5 mg PO BEDTIME PRN PRN Reason: Insomnia Home Medications ?Medication ?Instructions ?Recorded ?Confirmed ?Last Taken ?Type trazodone 50 mg tablet 50 mg PO BEDTIME PRN Insomnia 11/13/20 12/26/24 Unknown History duloxetine 30 mg capsule,delayed 30 mg PO DAILY PRN Body Pain 12/26/24 12/26/24 Unknown History release fluticasone propionate 50 2 spray intranasal DAILY PRN 12/26/24 12/26/24 Unknown History mcg/actuation nasal Allergy Symptoms spray,suspension levothyroxine 50 mcg tablet 50 mcg PO DAILY@0600 12/26/24 12/26/24 12/26/24 History Exam Height,Weight and Vital Signs: Height 5 ft 1 in Weight 115 lb Last Vital Signs Temp 98.1 F 12/27/24 15:06 Pulse 64 12/27/24 15:06 Resp 18 12/27/24 15:06 BP 137/72 12/27/24 15:06 Pulse Ox 97 12/27/24 15:06 O2 Del Method Room Air 12/27/24 15:06 Pertinent Lab Results Pertinent Lab Results: Laboratory Tests 12/26/24 12/26/24 13:48 17:09 WBC 8.0 RBC 4.78 Hgb 13.7 Hct 41.8 MCV 87.4 MCH 28.7 MCHC 32.8 RDW 13.0 Plt Count 245 MPV 10.8 Immature Gran % (Auto) 0.4 Neut % (Auto) 71.9 Lymph % (Auto) 15.9 L [place] % (Auto) 7.9 Eos % (Auto) 3.5 Baso % (Auto) 0.4 Lymph # (Auto) 1.3 Clay # (Auto) 0.6 Eos # (Auto) 0.3 Baso # (Auto) 0.0 Abs Immat Gran (auto) 0.03 Absolute Neuts (auto) 5.8 Absolute Nucleated RBC 0.000 Nucleated RBC % (auto) 0.0 Sodium 142 Potassium 4.1 Chloride 109 H Carbon Dioxide 26 Anion Gap 11 L BUN 12 Creatinine 0.74 Estim Creat Clear Calc 56.4 Estimated GFR > 60 Random Glucose 103 Calcium 9.9 D Magnesium 2.0 Total Bilirubin 0.4 AST 53 H ALT 51 H Alkaline Phosphatase 84 Total Protein 7.7 Albumin 4.3 Lipase 19 Urine Color Yellow Urine Appearance Turbid Urine pH 8.5 Ur Specific [place] 1.015 Urine Protein Negative Urine Glucose (UA) Negative Urine Ketones Negative Urine Blood Negative Urine Nitrite Negative Ur Leukocyte Esterase Small (1+) H Urine RBC 0-2 Urine WBC 0-5 Ur Squamous Epith Cells 0-2 Other Crystals Present Urine Bacteria None Seen Hyaline Casts 0-2 Airway Mallampati Class: II TM Dist: >3cm Neck ROM: Full Loose/Missing/Broken Teeth: No Assessment and Plan Assessment Anesthesia Assessment: Anesthesia Plan Discussed and Chart Reviewed Final Anesthetic Review Family History of Problems with Anesthesia: No History of Problems with Anesthesia: No NPO: Yes ASA Class: II Final Preanesthetic Review: No Changes in Pt Med Stat, Meds/Allgs Chart Reviewed, Consent Obtained/Reviewed and Anes Risks/Benef Reviewed Patient Risk: Low Procedure Risk: Low Anesthetic Plan Anesthetic Plan: GA Disposition: Standard PACU
--- NOTE | 2024-12-27 17:41 | P.OP_ITS ---
Operative Note Operative Note Date of Service: 12/27/24 Narrative: Preoperative diagnosis: Acute cholecystitis, cholelithiasis Postoperative diagnosis: Same Procedure: Laparoscopic converted to open cholecystectomy Surgeon: Segun Chambers MD Program Development Manager: Capri Freeman PA-C Anesthesia: General endotracheal Indications for procedure: 64-year-old female patient presenting with a 3 day history of abdominal pain in the right upper quadrant found on ultrasound to have a distended gallbladder with a impacted gallstone at the neck of the gallbladder. Patient was found to have tenderness over the gallbladder with a positive Hermsoillo sign. Operative findings: Dense adhesions throughout the abdomen from prior surgery. Dense adhesions also noted in the right upper quadrant obscuring visibility of the gallbladder making laparoscopic cholecystectomy and possible. Patient therefore was converted to an open cholecystectomy. Specimen: Gallbladder Estimated blood loss: 10 mL Complications: None Procedure details: Patient was brought to the OR and placed in a supine position. After administering general anesthesia the patient's abdomen was prepped with ChloraPrep and draped in a sterile fashion. A surgical time-out was called the consent confirmed. Patient received preoperative antibiotics and Venodyne boots were in place. Local anesthesia was infiltrated around the umbilicus and a 5 mm incision made with a scalpel. A Veress needle was then inserted while elevating the abdominal cavity with towel clips. After positive drop test the abdomen was insufflated to a pressure 15 mmHg. The Veress needle was removed and a 5 mm trocar inserted. Dense adhesions were immediately identified around the umbilicus. An open insertion of the epigastric trocar was then performed by creating a transverse incision in the epigastrium. This was carried down through anterior and posterior rectus sheath and into the peritoneum. A 10 mm port was then inserted in the abdomen insufflated to a pressure of 15 mmHg. An attempt was made to take down adhesions using the LigaSure however adhesions were found to be too thick and liver was unable to be clearly identified. The decision was made to convert to an open procedure. A right upper quadrant Kirk incision was then created with a scalpel and carried out through subcutaneous tissue through the anterior rectus sheath past the rectus muscle and into the posterior sheath. The peritoneum was then opened in the abdominal cavity explored. A Bookwalter retractor was placed. The gallbladder was dissected free from all the adhesions and brought up through the incision. This was grasped with a Briseyda clamp. A retrograde dissection of the gallbladder was then performed by dividing the peritoneum off the gallbladder with the electrocautery. Gentle dissection was then used to free the gallbladder from the liver bed using electrocautery. The cystic artery was identified, doubly clipped and divided. Adhesions to the anterior surface of the gallbladder were also taken down using electrocautery. The gallbladder was then dissected down to the neck where a large gallstone was identified. The gallstone was able to be mobilized into the body of the gallbladder. Dissection was then continued into the infundibulum. The gallbladder was then clamped with a right inguinal clamp and divided. The cystic duct was ligated using a 3-0 silk tie x2 followed by hemoclips. The gallbladder was passed off the table and sent to pathology for further examination. The abdominal cavity was thoroughly irrigated with saline solution and suctioned dry. Wounds were checked for hemostasis. Good hemostasis was identified. No bile leak could be identified as well. Peritoneum and posterior sheath was then closed using a running 0 Polysorb suture. Anterior rectus sheath was then closed using a running 0 Polysorb suture. Dermis was reapproximated using interrupted 3-0 Polysorb sutures and skin closed using a running subcuticular 4- 0 Polysorb suture. The umbilical incision was closed using an interrupted 4-0 Polysorb suture. Steri-Strips, 4 x 4 gauze and Tegaderm were then applied. The patient tolerated the procedure well. Sponge, instrument, and needle counts reported as correct. The patient was transferred to PACU in stable condition.
[2024-12-27] MEDS: HYDROmorphone HCl 0.5 MG/0.5 ML SYRINGE 0.25 MG IVPUSH ×2 (18:06→18:15)
[2024-12-27] MEDS: 0.9 % Sodium Chloride Flush 3 ML SYRINGE IVFLUSH (19:14)
[2024-12-27] MEDS: ondansetron HCL 4 MG/2 ML VIAL IVPUSH (19:14)
[2024-12-27] MEDS: HYDROmorphone HCl 0.5 MG/0.5 ML SYRINGE IVPUSH (23:31)
[2024-12-28] MEDS: Acetaminophen 1,000 MG/100 ML PIGGYBACK 400 MG IV ×3 (01:39→13:07)
[2024-12-28 03:12] VITALS: BP 112/63; PULSE 64; RESP 18; TEMP 36.7; O2SAT 98
[2024-12-28] MEDS: Dextrose 5 % and Lactated Ring 1,000 ML 125 ML IVCONT (03:25)
[2024-12-28] MEDS: HYDROmorphone HCl 0.5 MG/0.5 ML SYRINGE IVPUSH (03:28)
[2024-12-28] MEDS: Levothyroxine Sodium 50 MCG TABLET PO (05:46)
[2024-12-28 06:58] VITALS: BP 155/72; PULSE 60; RESP 18; TEMP 36.9; O2SAT 97
[2024-12-28] MEDS: Fenofibrate 54 MG TABLET PO (07:35)
[2024-12-28] MEDS: Calcium + Vitamin D 250 MG TABLET PO (07:35)
--- NOTE | 2024-12-28 08:16 | P.PNGS_ITS ---
Subjective Subjective Date of Service: 12/28/24 Interval history: Feels well this morning, mild incisional pain. Has not eaten solid food yet. Has not been OOB yet. Passing flatus. Physical Exam 2 Vital Signs: Vital Signs: Last Vital Signs Temp 98.5 F 12/28/24 06:58 Pulse 60 12/28/24 06:58 Resp 18 12/28/24 06:58 BP 155/72 H 12/28/24 06:58 Pulse Ox 97 12/28/24 06:58 O2 Del Method Room Air 12/28/24 06:58 O2 Flow Rate 2 12/27/24 23:22 BMI result Body Mass Index 21.7 Const: General: comfortable, no acute distress and alert O rientation/consciousness: patient oriented x3 Resp: Effort & Inspection: normal respiratory effort GI: Inspection: Yes incision (dressings c/d/i) Palpation (GI): Soft to palpation, Tenderness to palpation present (GI) (very mild incisional) and no guarding Skin: General skin exam: no rashes or lesions noted and no jaundice Neuro: General: patient oriented x3 and moves all extremities Objective Data Active Medications Calcium Carbonate/Cholecalciferol (Calcium + Vitamin D 250 Mg Tablet) 250 mg PO DAILY [facility] Last Admin: 12/28/24 07:35 Dose: 250 mg Documented By: LINA Docusate Sodium (Docusate Sodium 100 Mg Capsule) 100 mg PO BID PRN PRN Reason: constipation Duloxetine HCl (Duloxetine Hcl 30 Mg Capsule.Dr) 30 mg PO DAILY PRN PRN Reason: Body Pain Fenofibrate (Fenofibrate 54 Mg Tablet) 54 mg PO DAILY [facility] Last Admin: 12/28/24 07:35 Dose: 54 mg Documented By: LINA Fluticasone Propionate (Fluticasone Propionate Nasal 16 Gm [place]) 2 spray NOSTRIL-B DAILY PRN PRN Reason: Allergy Symptoms Hydromorphone HCl (Hydromorphone Hcl 0.5 Mg/0.5 Ml Syringe) 0.5 mg IVPUSH Q3H PRN; Protocol PRN Reason: Pain, Severe (Pain Scale 7-10) Last Admin: 12/28/24 03:28 Dose: 0.5 mg Documented By: LUPILLO Dextrose/Lactated Ringer's (D5lr) 1,000 mls @ 125 mls/hr IVCONT .Q8H [facility] Last Admin: 12/28/24 03:25 Dose: 125 mls/hr Documented By: LUPILLO Acetaminophen (Ofirmev) 1,000 mg in 100 mls @ 400 mls/hr IV Q6H [facility] Stop: 12/28/24 13:29 Last Admin: 12/28/24 07:34 Dose: 400 mls/hr Documented By: LINA Levothyroxine Sodium (Levothyroxine Sodium 50 Mcg Tablet) 50 mcg PO DAILY@0600 [facility] Last Admin: 12/28/24 05:46 Dose: 50 mcg Documented By: LUPILLO Ondansetron HCl (Ondansetron Hcl 4 Mg/2 Ml Vial) 4 mg IVPUSH QID PRN PRN Reason: Nausea Last Admin: 12/27/24 19:14 Dose: 4 mg Documented By: LUPILLO Oxycodone HCl (Oxycodone Hcl Immed Release 5 Mg Tablet) 5 mg PO Q6H PRN PRN Reason: Pain, Moderate(Pain Scale 4-6) Sodium Chloride (0.9 % Sodium Chloride Flush 3 Ml Syringe) 3 ml IVFLUSH QSHIFT [facility] Last Admin: 12/28/24 07:18 Dose: Not Given Documented By: LINA Non-Admin Reason: IV Running Trazodone HCl (Trazodone Hcl 50 Mg Tablet) 50 mg PO BEDTIME PRN PRN Reason: Insomnia Labs 12/26/24 13:48 12/26/24 13:48 Microbiology Microbiology Results: Microbiology 12/26/24 17:32 Urine Culture - Preliminary Urine clean catch - Clean Catch Midstream Culture too young to evaluate. Procedures Date of Service Date of Service: 12/28/24 Progress Note: A&P Assessment and plan (1) S/P cholecystectomy: Status: Acute (2) Acute cholecystitis due to biliary calculus: Status: Acute Plan POD #1 s/p lap attempted converted to open cholecystectomy. Doing well post op, minimal pain. VSS. Abd exam benign with clean dressings and appropriate post op tenderness. Dc IVF. Encouraged OOB and increasing activity today, incentive spirometer use 10x/hr. Home when comfortable on oral analgesics, likely in 1-2 days. Patient comfortable with plan. Time Spent With Patient Time: Total time managing care of this patient today ____ minutes. Quality Stroke Does the patient have a stroke diagnosis?: No VTE Prior VTE?: No VTE Risk Level:: Surgical - moderate VTE Device Contraindication: N/A - Device Ordered VTE Drug Contraindication: Treatment Not Indicated
--- NOTE | 2024-12-28 08:24 | HO.POSTANES ---
Post Anesthesia Evaluation Post Anesthesia Evaluation Date of Service: 12/28/24 Vital Signs: Vital Signs Temp Pulse Resp BP Pulse Ox O2 Del Method O2 Flow Rate 12/28/24 06:58 98.5 F 60 18 155/72 H 97 Room Air 12/28/24 03:12 98.0 F 64 18 112/63 98 Room Air 12/27/24 23:22 96.8 F 65 18 122/66 99 Nasal Cannula 2 Anesthesia: General Endotracheal-GETA Mental Status: Awake Pain Control: Satisfactory Nausea/Vomiting: None Hydration: Adequate Anesthesia-Related Issues: No Anes. Related Issues
[2024-12-28] MEDS: oxyCODONE HCl Immed Release 5 MG TABLET PO ×2 (08:28→23:30)
--- NOTE | 2024-12-28 11:34 | MHC.CM.PN ---
IMM 12/27/24 S/P Open [facility] 12/27/24. Unknown if Home services will be required. A referral has been sent. [facility] is the preference. [facility] Home with or without services. Patient will arrange for transportation home.
[2024-12-28 12:00] VITALS: BP 149/70; PULSE 63; RESP 16; TEMP 36.8; O2SAT 98
[2024-12-28 15:10] VITALS: BP 121/60; PULSE 60; RESP 16; TEMP 36.2; O2SAT 97
[2024-12-28] MEDS: 0.9 % Sodium Chloride Flush 3 ML SYRINGE IVFLUSH ×2 (17:05→23:33)
[2024-12-28 19:04] VITALS: BP 149/69; PULSE 74; RESP 20; TEMP 36.4; O2SAT 97
[2024-12-28 23:51] VITALS: BP 174/77; PULSE 68; RESP 16; TEMP 36.2; O2SAT 94
[2024-12-29 03:16] VITALS: BP 140/75; PULSE 74; RESP 16; TEMP 36.2; O2SAT 93
[2024-12-29] MEDS: Levothyroxine Sodium 50 MCG TABLET PO (05:36)
[2024-12-29] MEDS: oxyCODONE HCl Immed Release 5 MG TABLET PO (07:15)
[2024-12-29] MEDS: Fenofibrate 54 MG TABLET PO (07:15)
[2024-12-29] MEDS: Calcium + Vitamin D 250 MG TABLET PO (07:15)
[2024-12-29] MEDS: 0.9 % Sodium Chloride Flush 3 ML SYRINGE IVFLUSH (07:16)
[2024-12-29 07:23] VITALS: BP 139/69; PULSE 70; RESP 16; TEMP 36.5; O2SAT 96
--- NOTE | 2024-12-29 08:00 | PM.PNGS ---
Subjective Subjective Date of Service: 12/29/24 Interval history: Patient feels improved this morning, was able to tolerate her diet yesterday. Denies nausea or vomiting. Some incisional pain is noted. Physical Exam Vital Signs: Vital Signs: Last Vital Signs Temp 97.7 F 12/29/24 07:23 Pulse 70 12/29/24 07:23 Resp 16 12/29/24 07:23 BP 139/69 12/29/24 07:23 Pulse Ox 96 12/29/24 07:23 O2 Del Method Room Air 12/29/24 07:23 O2 Flow Rate 2 12/27/24 23:22 BMI result Body Mass Index 21.7 Const: General: no acute distress Orientation/consciousness: patient oriented x3 Resp: Effort & Inspection: normal respiratory effort GI: Other: Right upper quadrant incision is clean and intact without redness or discharge. Umbilical incision is clean and intact. Skin: Other: Warm, dry, no rashes Neuro: General: patient oriented x3 Objective Data Active Medications Calcium Carbonate/Cholecalciferol (Calcium + Vitamin D 250 Mg Tablet) 250 mg PO DAILY [facility] Last Admin: 12/29/24 07:15 Dose: 250 mg Documented By: LINA Docusate Sodium (Docusate Sodium 100 Mg Capsule) 100 mg PO BID PRN PRN Reason: constipation Duloxetine HCl (Duloxetine Hcl 30 Mg Capsule.Dr) 30 mg PO DAILY PRN PRN Reason: Body Pain Fenofibrate (Fenofibrate 54 Mg Tablet) 54 mg PO DAILY [facility] Last Admin: 12/29/24 07:15 Dose: 54 mg Documented By: LINA Fluticasone Propionate (Fluticasone Propionate Nasal 16 Gm [place]) 2 spray NOSTRIL-B DAILY PRN PRN Reason: Allergy Symptoms Hydromorphone HCl (Hydromorphone Hcl 0.5 Mg/0.5 Ml Syringe) 0.5 mg IVPUSH Q3H PRN; Protocol PRN Reason: Pain, Severe (Pain Scale 7-10) Last Admin: 12/28/24 03:28 Dose: 0.5 mg Documented By: LUPILLO Levothyroxine Sodium (Levothyroxine Sodium 50 Mcg Tablet) 50 mcg PO DAILY@0600 [facility] Last Admin: 12/29/24 05:36 Dose: 50 mcg Documented By: RICCO Ondansetron HCl (Ondansetron Hcl 4 Mg/2 Ml Vial) 4 mg IVPUSH QID PRN PRN Reason: Nausea Last Admin: 12/27/24 19:14 Dose: 4 mg Documented By: LUPILLO Oxycodone HCl (Oxycodone Hcl Immed Release 5 Mg Tablet) 5 mg PO Q4H PRN PRN Reason: Pain, Moderate(Pain Scale 4-6) Last Admin: 12/29/24 07:15 Dose: 5 mg Documented By: LINA Sodium Chloride (0.9 % Sodium Chloride Flush 3 Ml Syringe) [facility] Last Admin: 12/29/24 07:16 Dose: 3 ml Documented By: LINA Trazodone HCl (Trazodone Hcl 50 Mg Tablet) 50 mg PO BEDTIME PRN PRN Reason: Insomnia Labs 12/26/24 13:48 12/26/24 13:48 Microbiology Microbiology Results: Microbiology 12/26/24 17:32 Urine Culture - Final Urine clean catch - Clean Catch Midstream Procedures Date of Service Date of Service: 12/29/24 Progress Note: A&P Assessment and plan (1) Acute cholecystitis due to biliary calculus: Status: Acute Plan Laparoscopic converted to open cholecystectomy pod 2. Patient remains hemodynamically stable. Her incisions are clean and intact. She is tolerating p.o. without nausea or vomiting. Possible discharge later today or early tomorrow Time Spent With Patient Time: Total time managing care of this patient today ____ minutes. Quality Stroke Does the patient have a stroke diagnosis?: No VTE Prior VTE?: No VTE Risk Level:: Surgical - moderate VTE Device Contraindication: N/A - Device Ordered VTE Drug Contraindication: Treatment Not Indicated
--- NOTE | 2024-12-29 09:26 | MHC.CM.PN ---
IMM 12/27/ S/P Open Raisa Patient is discharged to home self care. She has arranged for transportation home.
[2024-12-29 09:36] VITALS: BP 134/67; PULSE 80; RESP 16; TEMP 36.3; O2SAT 96
--- NOTE | 2024-12-29 12:24 | PM.DS ---
DS: Providers Provider Date of Service: 12/29/24 Date of admission: 12/26/24 17:43 Date of discharge: 12/29/24 Primary care physician: Norma West MD Attending physician on admission: Segun Chambers Attending physician on discharge: Segun Chambers DS: Diagnosis Discharge Diagnosis (1) Acute cholecystitis due to biliary calculus: Status: Acute DS: Summary Hospital Course Hospital Course: HPI AT ADMISSION: Domonique Hudson is a 64 year old female with the emergency department with complaints of abdominal pain in the right upper quadrant for approximately 3 days. The pain was made worse by eating food. She denies nausea or vomiting, fever or chills. She presented to the emergency department and was noted to have tenderness in the right upper quadrant. Workup revealed mild elevation of the transaminases but a normal WBC. Ultrasound of the abdomen confirmed a large gallstone at the neck of the gallbladder. There was no evidence of wall thickening, pericholecystic fluid, or common bile duct dilatation. This morning she does feel improved but still has some pain in the right upper quadrant. HOSPITAL COURSE: The patient was admitted to the surgical service for further treatment of the acute cholecystitis. She elected to proceed with laparoscopic cholecystectomy, possible open. She was added onto the OR schedule for that day. On 12/27/24, an attempted laparoscopic converted to open cholecystectomy was performed by Dr. Chambers without complication. She was found to have dense adhesions throughout the abdomen and RUQ from prior surgery obscuring visibility of the gallbladder and she was therefore was converted to an open cholecystectomy. The patient tolerated the procedure well. She had an uncomplicated recovery course. She remained inpatient 2 days post op for pain control. Her activity was increased. On POD #2, she felt well and was tolerating a solid diet without nausea or vomiting, had good pain control and was ambulating without difficulty. She was hemodynamically stable. Her abdomen was benign with appropriate post op tenderness and clean and intact dressings. She felt ready for discharge. She was discharged to home on 12/29/24 in stable condition. She is to follow up in the office in 1 week. Status at Discharge Functional status at discharge: independent ambulation Overall status at discharge: patient is progressing back to baseline Time Attestation Discharge Coordination Time (in mins): 30 Quality: Safe Use of Opioids Does Pt have an Active Cancer Diagnosis on the Problem List?: No Quality: Stroke Does the patient have a stroke diagnosis?: No Physical Exam Vital Signs: Vital Signs: Last Vital Signs Temp 97.3 F 12/29/24 09:36 Pulse 80 12/29/24 09:36 Resp 16 12/29/24 09:36 BP 134/67 12/29/24 09:36 Pulse Ox 96 12/29/24 09:36 O2 Del Method Room Air 12/29/24 09:36 O2 Flow Rate 2 12/27/24 23:22 BMI result Body Mass Index 21.7 Const: General: comfortable, no acute distress and alert Orientation/consciousness: patient oriented x3 Resp: Effort & Inspection: normal respiratory effort GI: Inspection: No distended and Yes incision (clean) Palpation (GI): Soft to palpation, Tenderness to palpation present (GI) (mild incisional) and no guarding Skin: General skin exam: no rashes or lesions noted and no jaundice Neuro: General: patient oriented x3 and moves all extremities DS: Data Data Completed and Pending Completed studies during hospitalization [Text1]: 12/27/24 17:03 Surgical [PTH] Routine Gallbladder, cholecystectomy: Acute on chronic cholecystitis with focal necrosis, and cholelithiasis. Discharge Plan Discharge Anticipated Discharge Date/Time: 12/28/24 09:11 Patient Disposition: Home, Self-Care Discharge Diagnosis: acute cholecystitis, s/p laparoscopic cholecystectomy Referrals: Segun Chambers MD [Physician] - 1 Week Norma Chairez MD [Primary Care Provider] - 1 Week Discharge Medications: New docusate sodium [Colace] 100 mg capsule 100 mg PO BID Qty: 30 0RF oxycodone 5 mg tablet 5 mg PO Q4H PRN (Reason: pain (scale score 7-10)) Qty: 26 0RF Rx Instructions: Partial Fill upon patient request. Continued calcium carbonate-vitamin D3 1,000 mg-20 mcg (800 unit) tablet 1 tab PO DAILY 90 Days Qty: 90 3RF docusate sodium 100 mg capsule 100 mg PO BID PRN (Reason: constipation) 90 Days Qty: 180 2RF fenofibrate nanocrystallized 48 mg tablet 48 mg PO DAILY 90 Days Qty: 90 3RF cetirizine [All Day Allergy (cetirizine)] 10 mg tablet 10 mg PO DAILY PRN (Reason: allergy symptoms) 90 Days Qty: 90 1RF fluticasone propionate 50 mcg/actuation spray,suspension 2 spray intranasal DAILY PRN (Reason: Allergy Symptoms) duloxetine 30 mg capsule,delayed release(DR/EC) 30 mg PO DAILY PRN (Reason: Body Pain) levothyroxine 50 mcg tablet 50 mcg PO DAILY@0600 trazodone 50 mg tablet 50 mg PO BEDTIME PRN (Reason: Insomnia) Discharge Orders: Discharge Order (Routine); Ordered 12/29/24 Ordered By: Capri Freeman Diet: Low fat, low cholesterol Activity on Discharge: No heavy lifting Stand Alone Forms: Patient Portal Discharge page Print Language: Ethiopian Activity Restrictions/Additional Instructions: If the incision area is tender, you may apply an ice pack for short intervals (No more than 20 minutes on, followed by at least 20 minutes off). Do not apply heat. Do not use creams, lotions, or topical antibiotics. Ok to shower. Remove clear dressings 3 days following your procedure. You have steri strips (small white cloth strips) covering your incision- these will fall off ~1 week. No heavy lifting (>10lbs) or strenuous activity! Take Tylenol Extra-strength 1-2 tabs every 6 hours for the first day, then as needed. Oxycodone every 6-8 hours as needed for pain. Colace 100 mg every day as needed for constipation. Follow up in office with Dr. Chambers in 1 week. ([phone]) Call Your Doctor If: -Your temperature exceeds 101.5? F -You experience excessive pain or swelling -You have an unexpected reaction to medication -You have excessive bleeding -You experience continued vomiting/nausea -Your incision begins to separate -Your incision shows signs of infection such as increased redness, swelling, excessive pain, drainage (light blood or clear fluid is normal) or heat Care Plan Goals: Return to baseline health and resume normal activities following recovery period. Health Concerns: acute cholecystitis Plan of Treatment: s/p laparoscopic cholecystectomy f/u in office in 1 week Assessment: Doing well post op. Discharge Date/Time: 12/29/24 10:02
== END 2024-12-29 10:02 | disposition home or self-care (01) | DRG 416 ==
LOC: HO.ED 17:39 → HO.EDOVER 17:52 → HO.S3 12-27 13:51
PROVIDERS: Physician Assistant Medical; Admitting Provider Surgery; Emergency Provider Emergency Medicine; PCP Internal Medicine; Visit Provider Surgery
PROC: 0FT44ZZ Resection of Gallbladder, Percutaneous Endoscopic Approach (ICD-10-PCS; CPT 47562; principal; 2024-12-27 16:30)
DX: K80.00 Calculus of gallbladder with acute cholecystitis without obstruction (principal); K82.8 Other specified diseases of gallbladder; E78.2 Mixed hyperlipidemia; E03.9 Hypothyroidism, unspecified; M79.7 Fibromyalgia; Z79.890 Hormone replacement therapy; Z79.899 Other long term (current) drug therapy
CPT/HCPCS: 36415; 76705; 80053; 81001; 83690; 83735; 85025; 87086; 88304; 99285; J0131; J1171; J2003; J2270; J2405; J2543; J2704; J2795; J3010

== ENCOUNTER → 2024-12-26 12:38 | Outpatient (BNV) | payer OTHER, SELFPAY | PROVIDERS: PCP Internal Medicine; Visit Provider Radiology Diagnostic Radiology | DX: K80.20 Calculus of gallbladder without cholecystitis without obstruction (principal) | CPT/HCPCS: 76705 ==

== ENCOUNTER → 2024-12-26 17:43 | Outpatient (BNV) | payer OTHER, SELFPAY | PROVIDERS: Admitting Provider Surgery; Emergency Provider Emergency Medicine; PCP Internal Medicine; Visit Provider Surgery | DX: Z90.49 Acquired absence of other specified parts of digestive tract (principal); K80.00 Calculus of gallbladder with acute cholecystitis without obstruction | CPT/HCPCS: 47562; 99024; 99222 ==

== ENCOUNTER 2025-01-03 09:30 | Outpatient (AMB) | payer OTHER, SELFPAY ==
--- NOTE | 2025-01-03 09:35 | A.OFFVIS_ITS ---
Vital Signs 01/03/25 09:41 Height 5 ft 1 in Weight 116 lb BMI 21.9 BP 129/60 Blood Pressure Location Lt brachial Position Sitting Pulse 63 Intake Visit Reasons: s/p cholecystectomy Intake Note: Patient is seen in office for post op assessment post laparoscopic cholecystectomy. Pt c/o: denies any concerns surgery:12/27/24 High Energy Forming Equipment Operator Required: Yes High Energy Forming Equipment Operator Language: Vertical Mill Operator Services: High Energy Forming Equipment Operator Present High Energy Forming Equipment Operator Name: Siobhan RUIZ Information Interpreted: non-clinical & clinical Tractor Driver: Tractor Driver Present Accompanied by: Spouse Allergies No Known Allergies Allergy (Verified 01/03/25 09:40) HPI Comments Details: 64-year-old female patient presenting with acute cholecystitis due to cholelithiasis. She underwent a laparoscopic converted to open cholecystectomy on 12/27/2024. She tolerated the procedure well and presents today for wound check. She denies any nausea, vomiting, fever or chills. She is eating well and reports normal bowel movements. She denies any problems with her incision. [facility] Medical History Osteopenia Mixed hyperlipidemia Hypercalcemia Skin lesion Fibromyalgia Hypothyroidism Constipation by delayed colonic transit Hypertriglyceridemia Insomnia Osteoporosis Surgical History History of laparoscopic cholecystectomy (12/27/24) Previous section History of appendectomy Family History Father Hypertension Mother No problems noted. Social History Household Members: Spouse and Family Housing: House Do you presently have visiting nurse or other home services: No Alcohol intake: current Alcohol intake frequency: holidays/special occasions only Alcohol type: beer and wine Patient Tobacco Use Status: Never used Tobacco e-Cigarette/Vaping Use: Never Used Second Hand Smoke Exposure: No service: No Current occupational status: retired Sexual orientation: Straight/Heterosexual Gender identity: Female Cognitive needs: No Hearing needs: No Vision needs: Yes Physical Exam Vital Signs: Last Vital Signs Pulse 63 01/03/25 09:41 BP 129/60 01/03/25 09:41 BMI result Body Mass Index 21.9 Const General: comfortable Nutritional Appearance: well nourished Orientation/consciousness: patient oriented x3 Resp Effort & Inspection: normal respiratory effort GI Other: Well-healed Kirk incision in the right upper quadrant with intact Steri- Strips. There is no redness or discharge. No hernia noted with Valsalva maneuvers. Neuro General: patient oriented x3 Extrem General: Yes normal to inspection Assessment & Plan Assessment & Plan (1) S/P cholecystectomy: Code(s): Z90.49 - Acquired absence of other specified parts of digestive tract Category: Surgical Plan 64-year-old female patient returning for a postop visit following a laparoscopic converted to open cholecystectomy. Her wounds are healing nicely and she is progressing well. She should continue to avoid lifting greater than 10 lb and return in approximately 2-3 weeks for follow-up examination. Coding Level of Care Code Global (68713) Diagnoses S/P cholecystectomy Z90.49
[2025-01-03 09:41] VITALS: BP 129/60; PULSE 63; BMI 21.9
--- OUTSIDE RECORDS SUMMARY | 2025-01-03 10:38 | XMS_ITS | Data Portability ---
Author Organization [facility] Address [address] [address] Care Team Providers Care White Hat Hacker Name Role Phone ROMERO SAMANTHA Referring Provider [phone] Assessment Encounter Date Assessment Date Assessment LastModified [...] has been made and she needs a recycle driver on the day of the procedure. [email or web address] Not available 02/10/2017 11:13:56 02/24/2017 02/24/2017 Doomnique Hudson is a 56 year old woman [...] ahs been made and she needs a recycle driver on the day of the procedure. [...] By Organization Details Last Modified Time 02/10/2017 [id number] She was advised to continue with activties as tolerated [email or web address] Not available 02/10/2017 11:11:49 02/24/2017 [id number] She was advised to continue with activties as tolerated [email or web address] Not available 02/26/2017 11:05:11 03/26/2017 [id number] She was advised to continue with activties as tolerated [email or web address] Not available 04/08/2017 14:26:49 02/26/2018 [id number] She was advised to continue with activties as tolerated [email or web address] Not available 03/01/2018 08:44:27 03/01/2018 [id number] She was advised to continue with activties as tolerated [email or web address] Not available 03/01/2018 11:13:32 Reason for Referral None Reported. Problems Name Problem SNOMED Code Status Onset Date Resolution Date Notes Provider Name and Address Organization Details Recorded Time Muscle pain 04120324 Active Steffanie rocha MD [address] , [address], [place], [address], [place] [facility] 8 09:03:50 Cervical radiculopathy 70959744 Active Steffanie rocha MD [address] , [address], [place], [address], [place] [facility] 8 09:03:46 Degeneration of cervical intervertebral disc 56830181 Active Steffaine rocha MD [address] , [address], [place], [address], [place] [facility] 8 09:03:54 Problem Notes None recorded. Procedures Surgical History Date Name Laterality Status Provider Name and Address Organization Details Recorded Time 03/01/20 18 Trigger Point Injections under ultrasound guidance completed Steffanie Luna MD [address] [facility] , [address], [place], [address], [place] [facility] 03/01/2018 11:16:55 02/25/20 17 Cervical Epidural Steroid injection under fluroscopic guidance completed Steffanie Luna MD [address] [facility] , [address], [place], [address], [place] [facility] 02/26/2017 10:59:49 02/11/20 17 Trigger Point Injections under ultrasound guidance completed Steffanie Luna MD [address] [facility] , [address], [place], [address], [place] [facility] 02/10/2017 11:14:55 01/28/20 17 Trigger Point Injections under ultrasound guidance completed Steffanie Luna MD [address] , [address], [place], [address], [place] [facility] 01/28/2017 09:09:59 Appendectomy completed Kitty Guy [place] [facility] 01/16/2017 10:39:37 Caesarean Section completed Kitty Guy [place] [facility] 01/16/2017 10:40:57 Other completed Kitty Guy [place] [facility] 01/16/2017 10:41:18 Other completed Kitty Guy [place] [facility] 01/16/2017 10:42:45 Imaging Results [...] % 133 mm[Hg] 72 mm[Hg] [place] [facility] 7 10:05:15 Date Recorded Body height Heart rate Oxygen saturation Oxygen saturation in Arterial blood by Pulse oximetry Systolic blood pressure Diastolic blood pressure Provider Name and Address Organization Details Last Updated DateTime 7 154.94 cm 72 /min 99 % 99 % 144 mm[Hg] 77 mm[Hg] Kitty Guy [place] [facility] 7 14:11:32 Date Recorded Body height Heart rate Oxygen saturation Oxygen saturation in Arterial blood by Pulse oximetry Systolic blood pressure Diastolic blood pressure Provider Name and Address Organization Details Last Updated DateTime 7 154.94 cm 79 /min 98 % 98 % 126 mm[Hg] 74 mm[Hg] Kitty Guy [place] [facility] 7 10:19:46 Date Recorded Body height Heart rate Oxygen saturation Oxygen saturation in Arterial blood by Pulse oximetry Body mass index (BMI) Body weight Systolic blood pressure Diastolic blood pressure Provider Name and Address Organization Details Last Updated DateTime 8 154.94 cm 74 /min 98 % 98 % 23.6 kg/m2 62763.0 5 g 136 mm[Hg] 75 mm[Hg] Kitty [...] Tobacco Smoking Status Never Smoker Not Available [facility] 08/17/2020 03:16:11 What Is Your Level Of Alcohol Consumption? None [id number] Information not available 08/17/2020 Are You Currently Employed? No [id number] Information not available 08/17/2020 Which Illicit Or Recreational Drugs Have You Used? No [id number] Information not available 08/17/2020 Education 12 Information no t available 01/16/2017 Live Alone Or With Others? With Others Information not available 01/16/2017 Marital Status Informatio n not available 01/16/2017 What Was The Date Of Your Most Recent Tobacco Screening? 03/01/2018 [id number] Information not available 08/17/2020 Sex: Unknown Functional [...] SNOMED-CT Code Diagnosis ICD10 Code Diagnosis Note [id number] Steffanie Luna MD PAIN OFFICE [address] [facility],[address] [place] [address] 01/16/2017 10:16:23 01/22/2017 20:12:19 Muscle pain 62161073 M79.1 Cervical radiculopathy 44177455 M54.12 Degenerati on of cervical intervertebral disc 02263127 M50.322 [id number] Steffanie Luna MD PAIN OFFICE [address] [facility] [place] [address] 01/27/2017 11:11:14 01/28/2017 09:20:51 Muscle pain 58987810 M79.1 Cervical radiculopathy 05651519 M54.12 Degenerati on of cervical intervertebral disc 45285867 M50.322 [id number] Steffanie Luna MD PAIN OFFICE [address] [facility] [place] [address] 02/10/2017 09:59:55 02/10/2017 11:20:29 Muscle pain 45616094 M79.1 Cervical radiculopathy 93597580 M54.12 Degenerati on of cervical intervertebral disc 43770431 M50.322 [id number] Steffanie Luna MD PAIN OFFICE [address] [place] [address] 02/24/2017 13:53:20 02/26/2017 11:17:46 Muscle pain 70309111 M79.1 Cervical radiculopathy 21222411 M54.12 Degenerati on of cervical intervertebral disc 60451003 M50.322 [id number] Steffanie Luna MD PAIN OFFICE [address] [place] [address] 03/26/2017 10:15:52 04/09/2017 10:12:54 Muscle pain 77766223 M79.1 Cervical radiculopathy 27769540 M54.12 Degenerati on of cervical intervertebral disc 97968281 M50.322 [id number] Steffanie Luna MD PAIN OFFICE [address] [place] [address] 02/26/2018 09:48:20 03/01/2018 08:50:37 Muscle pain 03020994 M79.1 Cervical radiculopathy 33393108 M54.12 Degenerati on of cervical intervertebral disc 32835837 M50.322 [id number] Steffanie Luna MD PAIN OFFICE [address] [facility] [place] [address] 03/01/2018 10:29:25 03/01/2018 11:17:26 Muscle pain 45339896 M79.1 Cervical radiculopathy 63359346 M54.12 Degenerati on of cervical intervertebral disc 36701853 M50.322 Health Concerns Section Related Observation LastModified by Organization Detai ls LastModified Time None Recorded Concern Status LastModified by Organization Details LastModified Time None Recorded Advance Directives Directive None Recorded Payers Encounter Date Sequence Insurance Name Policy Number Policy Rg Covered Member ID Gr Member ID Guarantor Name 02/10/2017 1 [facility] [id number] Domonique Wanda Hudson [id number] Domonique Wanda Hudson 02/24/2017 1 [facility]) [id number] Domonique Wanda Hudson [id number] Domonique Wanda Hudson 03/26/2017 1 [facility]MEDICA[facility]) [id number] Domonique Wanda Hudson [id number] Domonique Wanda Hudson 02/26/2018 1 [facility] H[facility] [id number] Domonique Wanda Hudson [id number] Domonique Wanda Hudson 03/01/2018 1 [facility] NET PLAN (MEDICAID HMO) [id number] Domonique Wanda Hudson [id number] Domonique Wanda Hudson Notes Date Note Type [...] or bowel incontinence. Steffanie Luna MD [address] , [address], [place], [address], [facility] 02/11/2017 15:56:31 02/24/2017 text/html She is here for a trial of cervical epidural steroid injection under fluoroscopic guidance. Steffanie Luna MD [address] [facility] , [address], [place], [address], [facility] 03/02/2017 15:31:51 03/26/2017 text/html She is here for a follow up to a cervical epidural steroid injection under fluoroscopic guidance. She reports 90% pain benefit which is ongoing. She states she has minimal pain in her upper extremities. Her activity level is up . She has no history of bladder or bowel incontinence. Steffanie Luna MD [address] [facility] , [address], [place], [address], [facility] 04/09/2017 16:37:30 02/26/2018 text/html [...] Minimal disc bulge at C3-4 level.She is Liberian speaking and has a friend who is interpreting for her today. She is able to communicate a little in Kosovan. Steffanie Luna MD [address] [facility] , [address], [place], [address], [facility] 03/02/2018 08:24:30 03/01/2018 text/html She is here for a trial of trigger point injection in right trapezius muscle under ultrasound guidance. Steffanie Luna MD [address] [facility] , [address], [place], [address], [facility] 03/02/2018 08:24:41 OBGyn Episode No OBEpisode recorded.
== END 2025-01-03 09:46 | disposition home or self-care (01) ==
PROVIDERS: PCP Internal Medicine; Visit Provider Surgery
DX: Z90.49 Acquired absence of other specified parts of digestive tract (principal)
CPT/HCPCS: 99024

== ENCOUNTER → 2025-01-03 09:30 | Outpatient (BNVA) | payer OTHER, SELFPAY | PROVIDERS: PCP Internal Medicine; Visit Provider Surgery | DX: Z90.49 Acquired absence of other specified parts of digestive tract (principal) | CPT/HCPCS: 99212 ==

== ENCOUNTER 2025-01-19 09:37 | Outpatient (AMB) | payer OTHER, SELFPAY ==
--- NOTE | 2025-01-19 09:37 | A.OFFVIS_ITS ---
Vital Signs 3 01/19/25 09:44 Height 5 ft 1 in Weight 116 lb 6 oz BMI 22.0 BP 125/63 Blood Pressure Location Lt brachial Position Sitting Pulse 67 Intake Visit Reasons: 2 week follow up s/p cholecystectomy Intake Note: Patient is seen in office for 2 weeks follow up visit, post laparoscopic cholecystectomy. Pt c/o: denies any concerns Distribution Center Supervisor Required: Yes Distribution Center Supervisor Language: Improvement Director Services: Distribution Center Supervisor Present Distribution Center Supervisor Name: Siobhan RUIZ Information Interpreted: non-clinical & clinical Warranty Manager: Warranty Manager Present Accompanied by: Self / Same As Patient Allergies No Known Allergies Allergy (Verified 01/19/25 09:39) HPI Comments Details: 64-year-old female patient presenting with acute cholecystitis due to cholelithiasis. She underwent a laparoscopic converted to open cholecystectomy on 12/27/2024. She tolerated the procedure well and presents today for wound check. She denies any nausea, vomiting, fever or chills. She is eating well and reports normal bowel movements. She denies any problems with her incision. [facility] Medical History Osteopenia Mixed hyperlipidemia Hypercalcemia Skin lesion Fibromyalgia Hypothyroidism Constipation by delayed colonic transit Hypertriglyceridemia Insomnia Osteoporosis Surgical History History of laparoscopic cholecystectomy (12/27/24) Previous section History of appendectomy Family History Father Hypertension Mother No problems noted. Social History Household Members: Spouse and Family Housing: House Do you presently have visiting nurse or other home services: No Alcohol intake: current Alcohol intake frequency: holidays/special occasions only Alcohol type: beer and wine Patient Tobacco Use Status: Never used Tobacco e-Cigarette/Vaping Use: Never Used Second Hand Smoke Exposure: No service: No Current occupational status: retired Sexual orientation: Straight/Heterosexual Gender identity: Female Cognitive needs: No Hearing needs: No Vision needs: Yes Physical Exam Vital Signs: Last Vital Signs Pulse 67 01/19/25 09:44 BP 125/63 01/19/25 09:44 BMI result Body Mass Index 22.0 Const General: no acute distress Nutritional Appearance: well nourished Orientation/consciousness: patient oriented x3 Eyes Sclerae: sclerae normal GI Other: Well-healed Kirk incision in the right upper quadrant with no hernia or evidence of infection Inspection: Yes normal to inspection Palpation (GI): Soft to palpation, nontender and no guarding Abdomen image: 2 1. Skin Other: Warm, dry, normal color, no rash Neuro General: patient oriented x3 Assessment & Plan Assessment & Plan (1) S/P cholecystectomy: Code(s): Z90.49 - Acquired absence of other specified parts of digestive tract Category: Surgical Plan 64-year-old female patient returning for a postop visit following a laparoscopic converted to open cholecystectomy. Her wounds are healing nicely and she is progressing well. She may resume normal activity without restrictions and should follow up as needed. Coding Level of Care Code Global (90936) Diagnoses S/P cholecystectomy Z90.49
[2025-01-19 09:44] VITALS: BP 125/63; PULSE 67; BMI 22.0
== END 2025-01-19 09:48 | disposition home or self-care (01) ==
LOC: HO.HGS 09:38
PROVIDERS: PCP Internal Medicine; Visit Provider Surgery
DX: Z90.49 Acquired absence of other specified parts of digestive tract (principal)
CPT/HCPCS: 99024

== ENCOUNTER → 2025-01-19 09:37 | Outpatient (BNVA) | payer OTHER, SELFPAY | PROVIDERS: PCP Internal Medicine; Visit Provider Surgery | DX: Z90.49 Acquired absence of other specified parts of digestive tract (principal) | CPT/HCPCS: 99212 ==

== ENCOUNTER 2025-01-25 10:20 | Outpatient (AMB) | payer OTHER, SELFPAY ==
--- NOTE | 2025-01-25 10:24 | A.OFFVIS_ITS ---
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 She is doing well with no ekg/ecg technician concerns. Currently sexually active. Has vaginal dryness, some irritation with panty liner. STI testing offered; she declines. Attempting to eat a healthy diet with calcium and vitamin D and stays active with exercise. Last pap smear; 2022. Last mammogram; 2023. Colonoscopy is UTD. Denies any family history of breast, ovarian or colon cancer. [facility] Medical History Osteopenia Mixed hyperlipidemia Hypercalcemia Skin lesion Fibromyalgia Hypothyroidism Constipation by delayed colonic transit Hypertriglyceridemia Insomnia Osteoporosis Surgical History History of laparoscopic cholecystectomy (12/27/24) Previous section History of appendectomy Family History Father Hypertension Mother No problems noted. Social History Household Members: Spouse and Family Housing: House Do you presently have visiting nurse or other home services: No Alcohol intake: current Alcohol intake frequency: holidays/special occasions only Alcohol type: beer and wine Patient Tobacco Use Status: Never used Tobacco e-Cigarette/Vaping Use: Never Used Second Hand Smoke Exposure: No service: No Current occupational status: retired Sexual orientation: Straight/Heterosexual Gender identity: Female Cognitive needs: No Hearing needs: No Vision needs: Yes Female Reproductive History Menstrual Total pregnancies: 3 Full term: 3 Number of Living Children: 3 Date of last pap smear: 01/14/23 (neg pap and hpv) Date of Mammogram: 05/07/24 (Birad 2) Date of last Bone Density Screenin12/29/23 Review of Systems Const All systems reviewed & are unremarkable except as noted in HPI and below Reports as per HPI Eyes Reports no additional complaints ENT Reports no additional complaints Card Reports no additional complaints Resp Reports no additional complaints GI Reports as per HPI and Reports no additional complaints Reports as per HPI Musc Reports no additional complaints Skin/Breast Reports as per HPI Neuro Reports no additional complaints Psych Reports no additional complaints Endo Reports no additional complaints Corona/Lymph Reports no additional complaints Aller/Immun Reports no additional complaints Physical Exam Vital Signs: Last Vital Signs BP 112/64 01/25/25 10:45 BMI result Body Mass Index 21.7 Const General: cooperative, healthy appearing, no acute distress, well developed and alert Orientation/consciousness: patient oriented x3 HEENT Head: Yes normal to inspection Eyes General: appearance normal, both eyes and all related structures Neck Neck: Yes normal visual inspection Thyroid: Thyroid normal Chest Chest palpation & inspection: normal inspection of the chest and other (no puckering, dimpling, peau de orange, retraction, discharge, masses) Breast/axilla inspection: normal inspection of the breasts Breast/axilla palpation: normal palpation of the breasts Resp Effort & Inspection: normal respiratory effort GI Inspection: Yes normal to inspection Palpation (GI): Soft to palpation Rectal Exam - Female: deferred General: Yes bladder normal to palpation External Female Exam: normal external appearance and normal appearance of the ur ethra Speculum Exam - Vagina: normal appearance of the vagina, normal palpation, normal vaginal discharge and vagina atrophic (moderate) Speculum Exam - Cervix: normal appearance of the cervix and normal palpation Bimanual exam- vagina & uterus: normal bimanual exam, normal palpation, uterine size normal, bladder normal to palpation, normal palpation and non-tender Bimanual Exam- Adnexa, other: no masses Skin General skin exam: no rashes or lesions noted Rashes: no rashes Neuro General: patient oriented x3 Cognition (Neuro): normal cognition Extrem General: Yes normal to inspection Psych Attitude: cooperative Thought process: Normal thought process present Assessment & Plan Assessment & Plan (1) Encounter for well woman exam with routine gynecological exam: Code(s): Z01.419 - Encounter for gynecological examination (general) (routine) without abnormal findings Category: Medical Plan Discussed: Current recommendations for pap smears per ASCCP guidelines. Breast awareness, periodic self breast exams and yearly mammogram. Maintain a healthy lifestyle, well balanced diet including Calcium 1,200 mg and Vitamin D 600 IU daily, and routine exercise. Contact the office with any postmenopausal bleeding. Replens moisturizer, change pad brand and avoid Always pads. Atrophic changes with aging and treatment options. Follow up p.r.n. Patient verbalizes understanding and agrees to the plan of care. She was given opportunity to ask questions and all questions were answered to the best of my ability. RTO in 1 year for annual ekg/ecg technician exam. This note is constructed using voice recognition software. While every effort has been made to ensure accuracy, ground crew chief errors may have been included. Coding Level of Care Code Est Pt Prev Care >65y(54662) Diagnoses Encounter for well woman exam with routine gynecological exam Z01.419
[2025-01-25 10:45] VITALS: BP 112/64; BMI 21.7
--- OUTSIDE RECORDS SUMMARY | 2025-01-25 12:05 | XMS_ITS | Data Portability ---
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 [...] By Organization Details Last Modified Time 02/10/2017 [id number] She was advised to continue with activties as tolerated [email or web address] Not available 02/10/2017 11:11:49 02/24/2017 [id number] She was advised to continue with activties as tolerated tmanikantan Not available 02/26/2017 11:05:11 03/26/2017 [id number] She was advised to continue with activties as tolerated tmanikantan Not available 04/08/2017 14:26:49 02/26/2018 [id number] She was advised to continue with activties as tolerated tmanikantan Not available 03/01/2018 08:44:27 03/01/2018 [id number] She was advised to continue with activties as tolerated tmanikantan Not available 03/01/2018 11:13:32 Reason for Referral None Reported. Problems Name Problem SNOMED Code Status Onset Date Resolution Date Notes Provider Name and Address Organization Details Recorded Time Muscle pain 68732929 Active Steffanie rocha MD [address] , [address], [place], [address], [place] [facility] 8 09:03:50 Cervical radiculopathy 40499759 Active Steffanie rocha MD [address] , [address], [place], [address], [place] [facility] 8 09:03:46 Degeneration of cervical intervertebral disc 43856064 Active Steffanie rocha MD [address] , [address], [place], [address], [place] [facility] 8 09:03:54 Problem Notes None recorded. Procedures Surgical History Date Name Laterality Status Provider Name and Address Organization Details Recorded Time 03/01/20 18 Trigger Point Injections under ultrasound guidance completed Steffanie Luna MD [address] [facility] , [address], [place], [address], [place] [facility] 03/01/2018 11:16:55 02/25/20 17 Cervical Epidural Steroid injection under fluroscopic guidance completed Steffanie Luna MD [address] [facility] , [address], [place], [address], [place] [facility] 02/26/2017 10:59:49 02/11/20 17 Trigger Point Injections under ultrasound guidance completed Steffanie Luna MD [address] [facility] , [address], [place], [address], [place] [facility] 02/10/2017 11:14:55 01/28/20 17 Trigger Point Injections under ultrasound guidance completed Steffanie Luna MD [address] , [address], [place], [address], [place] [facility] 01/28/2017 09:09:59 Appendectomy completed Kitty Guy [place] [facility] 01/16/2017 10:39:37 Caesarean Section completed Kitty Guy [place] [facility] 01/16/2017 10:40:57 Other completed Kitty Guy [place] [facility] 01/16/2017 10:41:18 Other completed Kitty Guy [place] [facility] 01/16/2017 10:42:45 Imaging Results [...] % 133 mm[Hg] 72 mm[Hg] Kitty [facility] [place] [facility] 7 10:05:15 Date Recorded Body height Heart rate Oxygen saturation Oxygen saturation in Arterial blood by Pulse oximetry Systolic blood pressure Diastolic blood pressure Provider Name and Address Organization Details Last Updated DateTime 7 154.94 cm 72 /min 99 % 99 % 144 mm[Hg] 77 mm[Hg] Kitty [facility] [place] [facility] 7 14:11:32 Date Recorded Body height Heart rate Oxygen saturation Oxygen saturation in Arterial blood by Pulse oximetry Systolic blood pressure Diastolic blood pressure Provider Name and Address Organization Details Last Updated DateTime 7 154.94 cm 79 /min 98 % 98 % 126 mm[Hg] 74 mm[Hg] Kitty Guy [place] [facility] 7 10:19:46 Date Recorded Body height Heart rate Oxygen saturation Oxygen saturation in Arterial blood by Pulse oximetry Body mass index (BMI) Body weight Systolic blood pressure Diastolic blood pressure Provider Name and Address Organization Details Last Updated DateTime 8 154.94 cm 74 /min 98 % 98 % 23.6 kg/m2 04615.0 5 g 136 mm[Hg] 75 mm[Hg] Kitty [...] Tobacco Smoking Status Never Smoker Not Available [facility] 08/17/2020 03:16:11 What Is Your Level Of Alcohol Consumption? None [id number] Information not available 08/17/2020 Are You Currently Employed? No [id number] Information not available 08/17/2020 Which Illicit Or Recreational Drugs Have You Used? No [id number] Information not available 08/17/2020 Education 12 Information no t available 01/16/2017 Live Alone Or With Others? With Others Information not available 01/16/2017 Marital Status Informatio n not available 01/16/2017 What Was The Date Of Your Most Recent Tobacco Screening? 03/01/2018 [id number] Information not available 08/17/2020 Sex: Unknown Functional [...] SNOMED-CT Code Diagnosis ICD10 Code Diagnosis Note [id number] Steffanie Luna MD PAIN OFFICE [address] [facility],[address] [place] [address] 01/16/2017 10:16:23 01/22/2017 20:12:19 Muscle pain 21065768 M79.1 Cervical radiculopathy 12522698 M54.12 Degenerati on of cervical intervertebral disc 02707455 M50.322 [id number] Steffanie Luna MD PAIN OFFICE [address] [facility] [place] [address] 01/27/2017 11:11:14 01/28/2017 09:20:51 Muscle pain 13512252 M79.1 Cervical radiculopathy 15291380 M54.12 Degenerati on of cervical intervertebral disc 10115028 M50.322 [id number] Steffanie Luna MD PAIN OFFICE [address] [facility] [place] [address] 02/10/2017 09:59:55 02/10/2017 11:20:29 Muscle pain 13982595 M79.1 Cervical radiculopathy 72270656 M54.12 Degenerati on of cervical intervertebral disc 05720442 M50.322 [id number] Steffanie Luna MD PAIN OFFICE [address] [address] 02/24/2017 13:53:20 02/26/2017 11:17:46 Muscle pain 85772672 M79.1 Cervical radiculopathy 91932609 M54.12 Degenerati on of cervical intervertebral disc 25052603 M50.322 [id number] Steffanie Luna MD PAIN OFFICE [address] [address] 03/26/2017 10:15:52 04/09/2017 10:12:54 Muscle pain 11831657 M79.1 Cervical radiculopathy 96748941 M54.12 Degenerati on of cervical intervertebral disc 80110427 M50.322 [id number] Steffanie Luna MD PAIN OFFICE [address] [address] 02/26/2018 09:48:20 03/01/2018 08:50:37 Muscle pain 02105006 M79.1 Cervical radiculopathy 99483436 M54.12 Degenerati on of cervical intervertebral disc 33316445 M50.322 [id number] Steffanie Luna MD PAIN OFFICE [address] [facility] [place] [address] 03/01/2018 10:29:25 03/01/2018 11:17:26 Muscle pain 82766195 M79.1 Cervical radiculopathy 71518806 M54.12 Degenerati on of cervical intervertebral disc 69492177 M50.322 Health Concerns Section Related Observation LastModified by Organization Detai ls LastModified Time None Recorded Concern Status LastModified by Organization Details LastModified Time None Recorded Advance Directives Directive None Recorded Payers Encounter Date Sequence Insurance Name Policy Number Policy Rg Covered Member ID Rg Member ID Guarantor Name 02/10/2017 1 [facility]) [id number] Domonique Wanda Hudson [id number] Domonique Wanda Hudson 02/24/2017 1 [facility] [id number] Domonique Wanda Hudson [id number] Domonique Wanda Hudson 03/26/2017 1 [facility]ICA[facility]) [id number] Domonique Wanda Hudson [id number] Domonique Wanda Hudson 02/26/2018 1 [facility]MEDICAID HMO) [id number] Domonique Wanda Hudson [id number] Domonique Wanda Hudson 03/01/2018 1 [facility] NET PL[facility] (MEDICAID HMO) [id number] Domonique Wanda Hudson [id number] Domonique Wanda Hudson Notes Date Note Type [...] or bowel incontinence. Steffanie Luna MD [address] , [address], [place], [address], [facility] 02/11/2017 15:56:31 02/24/2017 text/html She is here for a trial of cervical epidural steroid injection under fluoroscopic guidance. Steffanie Luna MD [address] [facility] , [address], [place], [address], [facility] 03/02/2017 15:31:51 03/26/2017 text/html She is here for a follow up to a cervical epidural steroid injection under fluoroscopic guidance. She reports 90% pain benefit which is ongoing. She states she has minimal pain in her upper extremities. Her activity level is up . She has no history of bladder or bowel incontinence. Steffanie Luna MD [address] [facility] , [address], [place], [address], [facility] - [facility] Management 04/09/2017 16:37:30 02/26/2018 [...] Minimal disc bulge at C3-4 level.She is Swedish speaking and has a friend who is interpreting for her today. She is able to communicate a little in [place]. Steffanie Luna MD [address] [facility] , [address], [place], [address], [facility] 03/02/2018 08:24:30 03/01/2018 text/html She is here for a trial of trigger point injection in right trapezius muscle under ultrasound guidance. Steffanie Luna MD [address] [facility] , [address], [place], [address], [facility] 03/02/2018 08:24:41 OBGyn Episode No OBEpisode recorded.
== END 2025-01-25 11:19 | disposition home or self-care (01) ==
LOC: HO.HWS 10:20
PROVIDERS: PCP Internal Medicine; Visit Provider Advanced Practice Midwife
DX: Z01.419 Encounter for gynecological examination (general) (routine) without abnormal findings (principal)
CPT/HCPCS: 99397; 99459

== ENCOUNTER → 2025-01-25 10:20 | Outpatient (BNVA) | payer OTHER, SELFPAY | PROVIDERS: PCP Internal Medicine; Visit Provider Advanced Practice Midwife | DX: Z01.419 Encounter for gynecological examination (general) (routine) without abnormal findings (principal) | CPT/HCPCS: 99397; 99459 ==

== ENCOUNTER 2025-07-04 09:28 | Outpatient (AMB) | payer OTHER, SELFPAY ==
--- NOTE | 2025-07-04 09:34 | MHC.PC.OV ---
Vital Signs 07/04/25 09:35 Height 5 ft 1 in Weight 117 lb 2 oz BMI 22.1 BP 130/68 Blood Pressure Location Lt brachial Position Sitting Pulse 54 Pulse Source Pulse Oximeter Temp 97.1 F Temp Source Temporal Artery Scan Pulse Oximetry (%) 99 Oxygen Delivery Method Room Air Intake Visit Reasons: annual exam Intake Note: Patient is here today for a physical. Weatherization Technician Required: Yes Weatherization Technician Language: Beninese Information Interpreted: non-clinical & clinical Body Shop Estimator: Not Required per policy Accompanied by: Self / Same As Patient Allergies No Known Allergies Allergy (Verified 07/04/25 09:50) Medication List - Last Reconciled 07/04/25 by Norma West MD calcium carbonate-vitamin D3 1,000 mg-20 mcg (800 unit) 1 tab PO DAILY 90 days cetirizine (All Day Allergy (cetirizine)) 10 mg PO DAILY PRN 90 days docusate sodium (Colace) 100 mg PO BID duloxetine 30 mg PO BID 30 days fenofibrate nanocrystallized 48 mg PO DAILY 90 days fluticasone propionate 50 mcg/actuation 2 sprays intranasal DAILY PRN levothyroxine 50 mcg PO DAILY 90 days trazodone 50 mg PO BEDTIME PRN Tobacco use date assessed: 07/04/25 Fall risk assessment: No Falls in past year Last assessed Fall Risk: 07/04/25 Dental Screening Dental Screen Date: 07/04/25 Did you have a dental visit in the last 12 months?: Yes Did you have a dental problem in the last 6 months where you did not have access to dental care?: No Was dental information given to patient?: Patient has dentist HPI HPI Comments History of Present Illness Details The patient is a 64-year-old female presenting with an annual physical examination and is due for a pneumonia vaccine. She also complains of right hip pain. She has a history of osteopenia, identified in a bone density test conducted in 2023, with the next assessment scheduled for 2025. Her mammogram conducted last month was normal, and her Pap smear in 2022 showed no HPV detection. The patient experiences depression with anxiety, for which she is prescribed duloxetine and trazodone for sleep. She also takes fenofibrate for hyperlipidemia, levothyroxine for hypothyroidism, and cetirizine for allergies. She has a history of cholecystectomy, appendectomy, and section. Her family history includes hypertension in her father, and she denies any tobacco use, consuming alcohol only on special occasions. [facility] Medical History (Updated 07/04/25 @ 10:26 by Norma West MD) Osteopenia Mixed hyperlipidemia Hypercalcemia Skin lesion Fibromyalgia Hypothyroidism Constipation by delayed colonic transit Hypertriglyceridemia Insomnia Osteoporosis Surgical History History of laparoscopic cholecystectomy (12/27/24) Previous section History of appendectomy Family History Father Hypertension Mother No problems noted. Social History Household Members: Spouse and Family Housing: House Do you presently have visiting nurse or other home services: No Alcohol intake: current Alcohol intake frequency: holidays/special occasions only Alcohol type: beer and wine Patient Tobacco Use Status: Never used Tobacco e-Cigarette/Vaping Use: Never Used Second Hand Smoke Exposure: No service: No Current occupational status: retired Sexual orientation: Straight/Heterosexual Gender identity: Female Cognitive needs: No Hearing needs: No Vision needs: Yes (Glasses) Questionnaire PHQ-9 Over the last 2 weeks, how often have you been bothered by any of the following problems? 1. Little interest or pleasure in doing things: several days 2. Feeling down, depressed, or hopeless: several days 3. Trouble falling or staying asleep, or sleeping too much: several days 4. Feeling tired or having little energy: several days 5. Poor appetite or overeating: several days 6. Feeling bad about yourself - or that you are a failure or have let yourself or your family down: several days 7. Trouble concentrating on things, such as reading the newspaper or watching television: several days 8. Moving or speaking so slowly that other people could have noticed. Or the opposite - being so fidgety or restless that you have been moving around a lot more than usual: several days 9. Thoughts that you would be better off or of hurting yourself in some way: not at all Total score: 8 Depression Screening Interpretation: Positive Depression Screening Follow-up: Existing condition and Follow-up Visit Requested Depression Screening Done: Yes 77075 - PHQ-9 Billing: Yes Source: Developed by Drs. Scott Ashraf, Jaycee Camp, Ken Paige and colleagues, with an educational fe from [employer]. Thrive Questionnaire Date Thrive assessed: 07/02/25 I am a: Patient What is your living situation today?: I have a steady place to live Within the past 12 months, did the food you bought not last and you didn't have the money to get more?: Never true Within the past 12 months, did you worry whether your food would run out before you got money to buy more?: Never true Do you have trouble paying for medicines?: No Do you have trouble getting transportation to medical appointments?: No Do you have trouble paying your heating and electricity bill?: No Do you have trouble taking care of your child, family member or friend?: No Do you have trouble with day-to-day activities such as bathing, preparing meals, shopping, managing finances, etc.?: No Are you currently unemployed and looking for a job?: Yes Are you interested in more education?: Yes Please select the resources that you would like help with: Job search/training Currently or been in a relationship where the following occur: I choose not to answer THRIVE Score: 0 AUDIT C Alcohol Use Questionnaire (AUDIT-C) 1. How often do you have a drink containing alcohol?: Monthly or less 2. How many drinks containing alcohol do you have on a typical day when you are drinking?: 1 or 2 3. How often do you have six or more drinks on one occasion?: Never Total Score: 1 Score Reviewed/Action Taken: No DARSHAN-7 AMB Questionnaire DARSHAN-7 Date DARSHAN - 7 assessed: 07/04/25 Feeling nervous, anxious, or on edge: 3 = Nearly every day Not being able to stop or control worryin = Nearly every day Worrying too much about different things: 3 = Nearly every day Trouble relaxin = Nearly every day Being so restless that it is hard to sit still: 3 = Nearly every day Becoming easily annoyed or irritable: 3 = Nearly every day Feeling afraid as if something awful might happen: 3 = Nearly every day Total DARSHAN-7 score (0-4 normal; 5-9 mild; 10-14 moderate; 15-21 severe): 21 Source: Developed by Drs. Scott Ashraf, Jaycee Camp, Ken Paige and colleagues, with an educational fe from [employer]. DARSHAN-7 Assessment Billing DARSHAN-7 Assessment Tool: DARSHAN-7 Assessment 23117 Review of Systems Const All systems reviewed & are unremarkable except as noted in HPI and below Card Denies chest pain at rest, Denies chest pain with activity, Denies edema, Denies irregular heart rhythm, Denies claudication, Denies dyspnea, Denies dyspnea on exertion, Denies orthopnea, Denies paroxysmal nocturnal dyspnea and Denies slow heart rate Resp Denies cough, Denies dyspnea and Denies dyspnea on exertion GI Denies abdominal pain, Denies change in bowel habits, Denies excessive flatus, Denies nausea and Denies vomiting Denies urinary incontinence, Denies urinary hesitancy and Denies urinary urgency Musc Denies abnormal gait, Denies atrophy, Denies deformity and Denies limited range of motion Skin/Breast Denies bleeding lesions, Denies changing lesions and Denies rash Neuro Denies abnormal gait and Denies lack of coordination Physical exam (Primary Care) Vital Signs: Last Vital Signs Temp 97.1 F 07/04/25 09:35 Pulse 54 07/04/25 09:35 BP 130/68 07/04/25 09:35 Pulse Ox 99 07/04/25 09:35 Oxygen Delivery Method Room Air 07/04/25 09:35 BMI result Body Mass Index 22.1 Tobacco/Smoking Status: Tobacco use Status Tobacco use date assessed 07/04/25 07/04/25 09:40 Patient Tobacco Use Status Never used Tobacco 07/04/25 09:40 e-Cigarette/Vaping Use Never Used 07/04/25 09:40 PHQ-9: PHQ-9 Score PHQ-9: Total score 8 07/04/25 10:19 Depression Screening Interpretation: Positive Depression Screening Follow-up: Existing condition and Follow-up Visit Requested Thrive Assessment: Date of Thrive Assessment Date Thrive assessed 07/02/25 07/04/25 09:40 Currently or been in a relationship where the following occur: I choose not to answer HENMT Head: Yes normal to inspection, Yes normocephalic and Yes atraumatic Ears: external ears normal Eyes General: appearance normal, both eyes and all related structures Eyelids: Yes eyelids normal Conjunctivae: conjunctivae normal Neck Neck: Yes normal visual inspection and Yes supple Resp Effort & Inspection: normal respiratory effort Auscultation: clear to auscultation bilaterally Cardio Jugular venous distension: no JVD Rate: regular rate Rhythm: regular rhythm Heart sounds: S1 normal heart sound present and S2 normal heart sound present GI Inspection: Yes normal to inspection Palpation (GI): Soft to palpation and nontender Auscultation: normal bowel sounds Skin General skin exam: no rashes or lesions noted Neuro General: no focal motor deficits Extrem General: Yes full ROM Psych Appearance: grossly normal Immunizations pneumoc 20-cookie conj-dip cr(PF) 0.5 mL IM syringe Performing Provider: Norma West MD Performing Location[facility] [place] [facility] Administered by: Yanelis Thayer LPN on 07/04/25 10:18 Dose Route Admin Location Dispensed Lot Number Expiration Date NDC Hat Conditioner 0.5 mL IM Left Deltoid 0.5 mL [id number] 06/01/26 8386-0115-94 [employer] Total Dispensed Waste 0.5 mL 0 % VIS Given Date VIS Provided VIS Publication Date 07/04/25 Single Vaccine 25 Eligibility Eligibility Date Funding Source Not [facility] Eligible 07/04/25 Private Coding Level of Care Code Est Pt Level 3 (89566) Est Pt Prev Care >65y(21660) Diagnoses Physical exam Z00.00 Right hip pain M25.551 Mild recurrent major depression F33.0 Additional Codes DARSHAN-7 Assessment Billing - DARSHAN-7 Assessment Tool: DARSHAN-7 Assessment 03783 ([id number]) PHQ-9 - 80631 - PHQ-9 Billing: Yes ([id number]) Time Spent (min) 33 Assessment & Plan Assessment & Plan (1) Physical exam: Code(s): Z00.00 - Encounter for general adult medical examination without abnormal findings Category: Medical (2) Right hip pain: Code(s): M25.551 - Pain in right hip Category: Medical (3) Mild recurrent major depression: Code(s): F33.0 - Major depressive disorder, recurrent, mild Category: Medical Plan Plan Patient was informed and verbally consented to the use of an ambient scribe for clinic note documentation during this visit. 1. Encounter for general adult medical examination without abnormal findings Z00.00 The patient is due for a pneumonia vaccination, specifically the PCV 20. 2. Major depressive disorder, recurrent, mild F33.0 HCC 59 The patient experiences depression with anxiety, for which she is prescribed duloxetine and trazodone for sleep. 3. Pain in right hip M25.551 X-ray ordered. Orders: Orders Thyroid Stimulating Hormone Today E03.9 - Hypothyroidism, unspecified Pneumococcal 20 Immunization Today Z23 - Encounter for immunization Vitamin D 25-OH Total Today E55.9 - Vitamin D deficiency, unspecified Lipid Panel Today E78.5 - Hyperlipidemia, unspecified Comprehensive D Hanis. Panel Fast Today E78.2 - Mixed hyperlipidemia XR hip RT min 2V Today M25.551 - Pain in right hip
[2025-07-04 09:35] VITALS: BP 130/68; PULSE 54; TEMP 36.2; O2SAT 99; BMI 22.1
== END 2025-07-04 10:13 | disposition home or self-care (01) ==
LOC: HO.HMCH 09:29
PROVIDERS: PCP Internal Medicine; Visit Provider Internal Medicine
DX: Z00.00 Encounter for general adult medical examination without abnormal findings (principal); M25.551 Pain in right hip; F33.0 Major depressive disorder, recurrent, mild; Z23 Encounter for immunization

== ENCOUNTER → 2025-07-04 09:28 | Outpatient (BNVA) | payer OTHER, SELFPAY | PROVIDERS: PCP Internal Medicine; Visit Provider Internal Medicine | DX: Z00.00 Encounter for general adult medical examination without abnormal findings (principal); M85.80 Other specified disorders of bone density and structure, unspecified site; F41.9 Anxiety disorder, unspecified; G61.82 Multifocal motor neuropathy; M25.551 Pain in right hip; F33.0 Major depressive disorder, recurrent, mild; E55.9 Vitamin D deficiency, unspecified; E03.9 Hypothyroidism, unspecified; E78.2 Mixed hyperlipidemia; Z23 Encounter for immunization | CPT/HCPCS: 90471; 90677; 96127; 99212; 99397 ==

== ENCOUNTER 2025-07-05 09:02 | Outpatient (REF) | payer OTHER, SELFPAY ==
--- NOTE | ~2025-07-05 | XR_ITS ---
EXAMINATION: XR HIP, RIGHT CLINICAL INFORMATION: M25.551 - Pain in right hip COMPARISON: None available. TECHNIQUE: Two views of the right hip. FINDINGS: Right hip joint space is congruent without narrowing. Minute marginal osteophyte is present involving the superior margin of the fovea. There are no soft tissue calcifications. Pubic symphysis joint is irregular with sclerosis and marginal osteophytes. 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 Minute osteophyte is evident involving the fovea of the right femoral head. Electronically signed by: Flako Munoz MD 07/05/2025 10:23 AM EDT
[2025-07-05 10:57] LABS: Alanine Aminotransferase 23 U/L (0-31); Albumin Level 4.6 g/dL (3.5-5.0); Alkaline Phosphatase 64 U/L (39-117); Anion Gap 12 (12-20); Aspartate Amino Transferase 30 U/L (5-31); Blood Urea Nitrogen 20 mg/dL (9-16); Calcium 9.6 mg/dL (8.4-10.2); Carbon Dioxide 27 mmol/L (22-29); Chloride 109 mmol/L (96-108); Cholesterol 215 mg/dL (<200); Estimated Glomerular Filt Rate > 60; HDL Cholesterol 84 mg/dL (>40); Potassium 4.3 mmol/L (3.3-5.1); Sodium 144 mmol/L (135-145); Total Protein 7.4 g/dL (6.5-8.0); Triglycerides 54 mg/dL (<150)
[2025-07-05 10:59] LABS: Thyroid Stimulating Hormone 1.77 uIU/mL (0.32-4.0)
== END 2025-07-05 09:03 | disposition home or self-care (01) ==
LOC: HO.LAB 09:02
PROVIDERS: PCP Internal Medicine; Visit Provider Internal Medicine
DX: M25.551 Pain in right hip (principal); E78.2 Mixed hyperlipidemia; E03.9 Hypothyroidism, unspecified; E55.9 Vitamin D deficiency, unspecified
CPT/HCPCS: 36415; 73502; 80053; 80061; 82306; 84443

== ENCOUNTER → 2025-07-05 09:16 | Outpatient (BNV) | payer OTHER, SELFPAY | PROVIDERS: PCP Internal Medicine; Visit Provider Radiology Diagnostic Radiology | DX: M16.11 Unilateral primary osteoarthritis, right hip (principal) | CPT/HCPCS: 73502 ==

== ENCOUNTER 2025-10-04 10:32 | Outpatient (REF) | payer OTHER, SELFPAY ==
--- NOTE | ~2025-10-04 | XR_ITS ---
EXAMINATION: XR PELVIS CLINICAL INFORMATION: M25.559 - Pain in unspecified hip COMPARISON: None available. TECHNIQUE: AP view of the pelvis. FINDINGS: No evidence of acute fracture, dislocation or suspicious bony lesion. Hip joint spaces are maintained. Alignment is anatomic. Moderate symphysis pubis degeneration. SI joints are symmetric.. No abnormal soft tissue calcifications. Surgical clips in the right upper quadrant. There are 2 radiopaque densities projected over the mid abdomen XR/XR pelvis 1-2V IMPRESSION: Moderate symphysis pubis degeneration. Electronically signed by: Jon Ham MD 10/04/2025 04:19 PM [facility]
== END 2025-10-04 10:33 | disposition home or self-care (01) ==
LOC: HO.HOSX 10:32
PROVIDERS: Visit Provider Physician Assistant
DX: M76.891 Other specified enthesopathies of right lower limb, excluding foot (principal); R29.898 Other symptoms and signs involving the musculoskeletal system
CPT/HCPCS: 72170; 99212

== ENCOUNTER 2025-10-04 10:43 | Outpatient (AMB) | payer OTHER, SELFPAY ==
--- NOTE | 2025-10-04 10:46 | A.OFFVIS_ITS ---
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 Patient was seen by her PCP who referred to orthopedics. Today patient reports that she is having pain in her groin area that has been present for about a year. Denies injury. States her pain comes when she is working, stating feels as if this is a nerve pain. No previous treatment. She also complains of pain in the middle of her lower back that tra vels up her spine to her neck. 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 She states the pain is worse with walking. She states there is also pain with stairs and getting in and out of the car. No pain at night while sleeping, she is able to sleep on her right side without pain. She denies numbness or tingling. She states she has not had PT or injections to date. [facility] Medical History Osteopenia Mixed hyperlipidemia Hypercalcemia Skin lesion Fibromyalgia Hypothyroidism Constipation by delayed colonic transit Hypertriglyceridemia Insomnia Osteoporosis Surgical History History of laparoscopic cholecystectomy (12/27/24) Previous section History of appendectomy Family History Father Hypertension Mother No problems noted. Social History Household Members: Spouse and Family Housing: House Do you presently have visiting nurse or other home services: No Alcohol intake: current Alcohol intake frequency: holidays/special occasions only Alcohol type: beer and wine Patient Tobacco Use Status: Never used Tobacco e-Cigarette/Vaping Use: Never Used Second Hand Smoke Exposure: No service: No Current occupational status: retired Sexual orientation: Straight/Heterosexual Gender identity: Female Cognitive needs: No Hearing needs: No Vision needs: Yes (Glasses) Review of Systems Const All systems reviewed & are unremarkable except as noted in HPI and below Physical Exam Vital Signs: BMI result Body Mass Index 22.1 Const General: cooperative and no acute distress Orientation/consciousness: patient oriented x3 Resp Effort & Inspection: normal respiratory effort and able to speak in complete sentences Cardio Peripheral pulses: Peripheral pulses 2+ throughout Neuro General: patient oriented x3 Extrem Other: Right hip is normal to inspection and she walks without antalgic gait pattern. She has full range of motion of the hip without reproducible pain. I am able to perform a straight leg raise without pain. She has negative impingement test and can perform hip flexion extension with and without resistance without pain. Results Reviewed Results Reviewed: X-rays of the right hip obtained in the office today and reviewed by me are nega tive for any acute or chronic abnormalities. Assessment & Plan Assessment & Plan (1) Weakness of right hip: Code(s): R29.898 - Other symptoms and signs involving the musculoskeletal system Category: Medical (2) Tendonitis of right hip flexor: Code(s): M76.891 - Other specified enthesopathies of right lower limb, excluding foot Category: Medical Plan I am unable to reproduce her symptoms at this time therefore I do recommend a course of physical therapy to see if we can work on her strengthening conditioning which may be reproducing some of her pain with activities. If the symptoms persist or worsen over the next 6-8 weeks she can contact me we can order an MRI of the right hip otherwise she will follow up as needed. Orders: Orders XR pelvis 1-2V Today M25.559 - Pain in unspecified hip PT Evaluation and Treatment Today M76.891 - Other specified enthesopathies of right lower limb, excluding foot, R29.898 - Other symptoms and signs involving the musculoskeletal system Coding Level of Care Code Complex visit Add On G2211 Diagnoses Weakness of right hip R29.898 Tendonitis of right hip flexor M76.891
[2025-10-04 10:54] VITALS: BMI 22.1
--- OUTSIDE RECORDS SUMMARY | 2025-10-04 12:23 | XMS_ITS | Data Portability ---
Author Organization [facility] Pain Managem ent, PAIN OFFICE Address [address] [place] [address] Care Team Providers Care Warp Doffer Name Role Phone SAMANTHA ROMERO Referring Provider Assessment Encounter Date Assessment Date [...] has been made and she needs a driver license reviewing officer on the day of the procedure. [email or web address] Not available 02/10/2017 11:13:56 02/24/2017 02/24/2017 Domonique [...] ahs been made and she needs a driver license reviewing officer on the day of the procedure. 2. [...] By Organization Details Last Modified Time 02/10/2017 [id number] She was advised to continue with activties as tolerated [email or web address] Not available 02/10/2017 11:11:49 02/24/2017 [id number] She was advised to continue with activties as tolerated tmanikantan Not available 02/26/2017 11:05:11 03/26/2017 [id number] She was advised to continue with activties as tolerated tmanikantan Not available 04/08/2017 14:26:49 02/26/2018 [id number] She was advised to continue with activties as tolerated tmanikantan Not available 03/01/2018 08:44:27 03/01/2018 [id number] She was advised to continue with activties as tolerated tmanikantan Not available 03/01/2018 11:13:32 Reason for Referral None Reported. Problems Name Problem SNOMED Code Status Onset Date Resolution Date Notes Provider Name and Address Organization Details Recorded Time Muscle pain 65094245 Active Steffanie rocha MD [address] [facility] , [address], [place], [address], [place] [facility] 8 09:03:50 Cervical radiculopathy 64139450 Active Steffanie rocha MD [address] [facility] , [address], [place], [address], [place] [facility] 8 09:03:46 Degeneration of cervical intervertebral disc 70938018 Active Steffanie rocha MD [address] , [address], [place], [address], [place] [facility] 8 09:03:54 Problem Notes None recorded. Procedures Surgical History Date Name Laterality Status Provider Name and Address Organization Details Recorded Time 03/01/20 18 Trigger Point Injections under ultrasound guidance completed Steffanie Luna MD [address] [facility] , [address], [place], [address], [place] [facility] 03/01/2018 11:16:55 02/25/20 17 Cervical Epidural Steroid injection under fluroscopic guidance completed Steffanie Luna MD [address] [facility] , [address], [place], [address], [place] [facility] 02/26/2017 10:59:49 02/11/20 17 Trigger Point Injections under ultrasound guidance completed Steffanie Luna MD [address] [facility] , [address], [place], [address], [place] [facility] 02/10/2017 11:14:55 01/28/20 17 Trigger Point Injections under ultrasound guidance completed Steffanie Luna MD [address] [facility] , [address], [place], [address], [place] [facility] 01/28/2017 09:09:59 Appendectomy completed Kitty Guy [place] [facility] 01/16/2017 10:39:37 Caesarean Section completed Kitty Guy [place] [facility] 01/16/2017 10:40:57 Other completed Kitty Guy [place] [facility] 01/16/2017 10:41:18 Other completed Kitty Guy [place] [facility] 01/16/2017 10:42:45 Imaging Results [...] Recorded Body height Heart rate Oxygen saturation Systolic And Diastolic Provider Name and Address Organization Details Last Updated DateTime 02/10/2017 154.94 cm 76 /min 99 % 133/72 mm[Hg] Kitty Guy [place] [facility] 02/10/2017 10:05:15 Date Recorded Body height Heart rate Oxygen saturation Systolic And Diastolic Provider Name and Address Organization Details Last Updated DateTime 02/24/2017 154.94 cm 72 /min 99 % 144/77 mm[Hg] Kitty Guy [place] [facility] 02/24/2017 14:11:32 Date Recorded Body height Heart rate Oxygen saturation Body mass index (BMI) Body weight Systolic And Diastolic Provider Name and Address Organization Details Last Updated DateTime 8 154.94 cm 74 /min 98 % 23.6 kg/m2 28618.0 5 g 136/75 mm[Hg] Kitty Guy [facility] 8 10:04:34 Date Recorded Body height Heart rate Oxygen saturation Systolic And Diastolic Provider Name and Address Organization Details Last Updated DateTime 03/01/2018 154.94 cm 67 /min 99 % 135/76 mm[Hg] Kitty Guy [place] [facility] 03/01/2018 10:44:56 Date Recorded Body height Heart rate Oxygen saturation Systolic And Diastolic Provider Name and Address Organization Details Last Updated DateTime 03/26/2017 154.94 cm 79 /min 98 % 126/74 mm[Hg] Kitty Guy [place] [facility] 03/26/2017 10:19:46 Social History Question Answer Notes LastModified by Organizat ion Details LastModified Time Tobacco Smoking Status Never Smoker Not Available [employer] 08/17/2020 03:16:11 Which Illicit Or Recreational Drugs Have You Used? No [id number] Information not available 08/17/2020 Education 12 [facility] Information no t available 01/16/2017 Live Alone Or With Others? With Others [email or web address] Information not available 01/16/2017 Marital Status [facility] Informatio n not available 01/16/2017 What Was The Date Of Your Most Recent Tobacco Screening? 03/01/2018 [id number] Information not available 08/17/2020 Sex: Unknown Functional Status Question Answer Note LastModified by Organization D etails LastModified Time What is your level of alcohol consumption? None [id number] Information not available 08/17/2020 Are you currently employed? No [id number] Information not available 08/17/2020 Mental Status None recorded. Family History Nothing Reported. Medical History Condition Response Arthritis Y Hyperthyroidism Y High Cholesterol Y Gynecological HistoryNo gynecological history recorded. Obstetrics History GPAL:G 0 P 0 0 0 0 Past Encounters Encounter ID Performer Location Encounter Start Date Encounter Closed Date Diagnosis/Indication Diagnosis SNOMED-CT Code Diagnosis ICD10 Code Diagnosis IMO Codes Diagnosis Note [id number] Steffanie Luna MD PAIN OFFICE [address] [place] [address] 01/16/2017 10:16:23 01/22/2017 20:12:19 Muscle pain 49681989 M79.1 Cervical radiculopathy 60956847 M54.12 Degenerati on of cervical intervertebral disc 43817570 M50.322 [id number] Steffanie Luna MD PAIN OFFICE [address] [place] [address] 01/27/2017 11:11:14 01/28/2017 09:20:51 Muscle pain 71238345 M79.1 Cervical radiculopathy 06894221 M54.12 Degenerati on of cervical intervertebral disc 92990718 M50.322 [id number] Steffanie Luna MD PAIN OFFICE [address] [place] [address] 02/10/2017 09:59:55 02/10/2017 11:20:29 Muscle pain 35122872 M79.1 Cervical radiculopathy 71437772 M54.12 Degenerati on of cervical intervertebral disc 26858561 M50.322 [id number] Steffanie Luna MD PAIN OFFICE [address] [address] 02/24/2017 13:53:20 02/26/2017 11:17:46 Muscle pain 55131754 M79.1 Cervical radiculopathy 07080023 M54.12 Degenerati on of cervical intervertebral disc 92697779 M50.322 [id number] Steffanie Luna MD PAIN OFFICE [address] [address] 03/26/2017 10:15:52 04/09/2017 10:12:54 Muscle pain 08786773 M79.1 Cervical radiculopathy 99997045 M54.12 Degenerati on of cervical intervertebral disc 84668014 M50.322 [id number] Steffanie Luna MD PAIN OFFICE [address] [facility] [place] [place] [address] 02/26/2018 09:48:20 03/01/2018 08:50:37 Muscle pain 85309709 M79.1 Cervical radiculopathy 09027254 M54.12 Degenerati on of cervical intervertebral disc 54457191 M50.322 [id number] Steffanie Luna MD PAIN OFFICE [address] [place] [address] 03/01/2018 10:29:25 03/01/2018 11:17:26 Muscle pain 16542433 M79.1 Cervical radiculopathy 58721963 M54.12 Degenerati on of cervical intervertebral disc 67369618 M50.322 Health Concerns Section Related Observation LastModified by Organization Detai ls LastModified Time None Recorded Concern Status LastModified by Organization Details LastModified Time None Recorded Advance Directives Directive None Recorded Payers Insurance Date Sequence Insurance Name Policy Number Policy Rg Covered Member ID Rg Member ID Guarantor Name 02/26/2018 1 [facility] (MEDICAID HMO) [id number] Domonique Hudson [id number] Domonique Hudson 04/02/2018 1 [facility] (MEDICAID HMO) [id number] Domonique Hudson [id number] Domonique Hudson Notes Date Note Type Note Provider [...] or bowel incontinence. Steffanie Luna MD [address] [facility] , [address] [facility], [place], [address], [email or web address] - Pain Management 02/11/2017 15:56:31 02/24/2017 text/html She is here for a trial of cervical epidural steroid injection under fluoroscopic guidance. Steffanie Luna MD [address] [facility] , [address], [place], [address], [place] - [facility] 03/02/2017 15:31:51 03/26/2017 text/html She is here for a follow up to a cervical epidural steroid injection under fluoroscopic guidance. She reports 90% pain benefit which is ongoing. She states she has minimal pain in her upper extremities. Her activity level is up . She has no history of bladder or bowel incontinence. Steffanie Luna MD [address] [facility] , [address], [place], [address], [place] - [facility] 04/09/2017 16:37:30 02/26/2018 text/html [...] Minimal disc bulge at C3-4 level.She is Maldivian speaking and has a friend who is interpreting for her today. She is able to communicate a little in Czech. Steffanie Luna MD [address] [facility] , [address], [place], [address], [facility] Pain Management 03/02/2018 08:24:30 03/01/2018 text/html She is here for a trial of trigger point injection in right trapezius muscle under ultrasound guidance. Steffanie Luna MD [address] [facility] , [address], [place], [address], [facility] - Pain Management 03/02/2018 08:24:41 OBGyn Episode No OBEpisode recorded.
== END 2025-10-04 11:13 | disposition home or self-care (01) ==
LOC: HO.HOS 10:44
PROVIDERS: PCP Internal Medicine; Visit Provider Physician Assistant
DX: R29.898 Other symptoms and signs involving the musculoskeletal system (principal); M76.891 Other specified enthesopathies of right lower limb, excluding foot
CPT/HCPCS: 99213; G2211

== ENCOUNTER → 2025-10-04 10:45 | Outpatient (BNV) | payer OTHER, SELFPAY | PROVIDERS: Visit Provider Radiology Diagnostic Ultrasound | DX: M19.90 Unspecified osteoarthritis, unspecified site (principal) | CPT/HCPCS: 72170 ==